=== PATIENT | male | born 1950 | race Caucasian/White ===

== ENCOUNTER 2017-11-04 12:42 | Inpatient (IN) | payer OTHER ==
[2017-11-04] VITALS (7 sets, daily range): BP systolic 115–174
[~2017-11-04] VITALS: Ht 177.8 cm; Wt 108.0 kg
[2017-11-04] MEDS ORDERED: NACL 0.9% 1,000 ML IV ONE (12:49)
[2017-11-04] MEDS ORDERED: KETOROLAC TROMETHAMINE 30 MG VIAL IVP ONE (13:00)
[2017-11-04 13:20] LABS: HEMATOCRIT 41.1 % (36-54); HEMOGLOBIN 13.7 g/dL (14.0-18.0); MEAN CORPUSCULAR HEMOGLOBIN 33 pg (27-31); MEAN CORPUSCULAR HGB CONC 33 % (32-36); MEAN CORPUSCULAR VOLUME 101 fL (79.0-98.0); PLATELET COUNT (AUTO) 166 K/uL (130-430); RED BLOOD CELL COUNT(AUTO) 4.09 MIL/uL (4.2-6.2); RED CELL DISTRIBUTION WIDTH 15.2 % (9.0-15.0)
[2017-11-04 13:35] LABS: CALCIUM 8.2 mg/dL (8.4-11.0); CREATININE 1.05 mg/dL (0.55-1.30); POTASSIUM 3.3 mmol/L (3.5-5.1)
[2017-11-04 13:43] LABS: TOTAL BILIRUBIN 0.6 mg/dL (0.0-1.0)
[2017-11-04 13:46] LABS: BASOPHILS % (MANUAL) 0 % (0-2); EOSINOPHILS % (MANUAL) 2 % (0-7); LYMPHOCYTES % (MANUAL) 40 % (20-46); MONOCYTES % (MANUAL) 12 % (0-11)
[2017-11-04 13:51] LABS: PROTHROMBIN TIME 10.2 SECS (9.5-12.5)
[2017-11-04] MEDS ORDERED: AMI200 PO (13:54)
[2017-11-04] MEDS ORDERED: METO50TA7 PO (13:54)
[2017-11-04] MEDS ORDERED: LOSA25TA3 PO (13:54)
[2017-11-04] MEDS ORDERED: ACET325T53 PO (13:54)
[2017-11-04] MEDS ORDERED: LIP40 PO (13:54)
[2017-11-04] MEDS ORDERED: MULT-1117 (13:54)
[2017-11-04] MEDS ORDERED: MAGN400O4 PO (13:54)
[2017-11-04] MEDS ORDERED: ASCO-339 PO (13:54)
[2017-11-04] MEDS ORDERED: AMIN30LI33 PO (13:54)
[2017-11-04] MEDS ORDERED: DULR10 RC (13:54)
[2017-11-04] MEDS ORDERED: VITD2000 PO (13:54)
[2017-11-04] MEDS ORDERED: FERR-57 PO (13:54)
[2017-11-04] MEDS ORDERED: SENN-153 PO (13:54)
[2017-11-04] MEDS ORDERED: DOCU-144 PO (13:54)
[2017-11-04] MEDS ORDERED: HYDR-4100 PO (13:54)
[2017-11-04] MEDS ORDERED: BUME1TAB4 PO (13:54)
[2017-11-04] MEDS ORDERED: DICL50TA9 PO (13:54)
[2017-11-04] MEDS ORDERED: OXYC10TA71 PO (13:54)
[2017-11-04] MEDS ORDERED: NA P133E41 RC (13:54)
[2017-11-04] MEDS ORDERED: MAGN400T10 PO (13:54)
[2017-11-04] MEDS ORDERED: APIX5TAB PO (13:54)
[2017-11-04] MEDS ORDERED: FOLIC ACID 1 MG, THIAMINE HCL 100 MG, MAGNESIUM SULFATE 1 GM, MVI 10 ML in NACL 0.9% 1,... IV ONE (15:00)
[2017-11-04] MEDS ORDERED: FOLIC ACID 5 MG/ML VIAL IV ONE (15:09)
[2017-11-04] MEDS ORDERED: THIAMINE HCL 100 MG/ML VIAL ONE (15:09)
[2017-11-04] MEDS ORDERED: MAGNESIUM SULFATE 1 GM/2 ML VIAL ONE (15:09)
[2017-11-04] MEDS ORDERED: MVI 10 ML VIAL IV ONE (15:09)
[2017-11-04 15:17] LABS: BILIRUBIN,URINE NEGATIVE (NEGATIVE); BLOOD, URINE NEGATIVE (NEGATIVE); CLARITY/URINE CLEAR (CLEAR); COLOR,URINE YELLOW (YELLOW); GLUCOSE,URINE NEGATIVE (NEGATIVE); KETONES,URINE NEGATIVE (NEGATIVE); LEUKOCYTE ESTERASE ,URINE NEGATIVE (NEGATIVE); NITRITE, URINE NEGATIVE (NEGATIVE); PH,URINE 7.5 (5.0-8.0); PROTEIN URINE NEGATIVE (NEGATIVE); UROBILINOGEN,URINE 0.2 (0.2-1.0)
[2017-11-04 15:30] LABS: BARBITURATE, URINE NEGATIVE (NEG <=200); BENZODIAZEPINE, URINE NEGATIVE (NEG <=150); CANNABINOID, URINE NEGATIVE (NEG <=50); COCAINE, URINE NEGATIVE (NEG <=150); METHAMPHETAMINES SCREEN,URINE NEGATIVE (NEG <=500); OPIATE, URINE NEGATIVE (NEG <=100); PHENCYCLIDINE SCREEN,URINE NEGATIVE (NEG <=25); UR TRICYCLIC ANTIDEPRESSANTS NEGATIVE (NEG <=300); URINE AMPHETAMINE NEGATIVE (NEG <=500); URINE METHADONE NEGATIVE (NEG <=200); URINE OXYCODONE SCREEN NEGATIVE (NEG <=100); URINE PROPOXYPHENE SCREEN NEGATIVE (NEG <=300)
[2017-11-04] MEDS ORDERED: LORazepam 2 MG/ML VIAL (FOR ER USE) IVP ONE (15:45)
[2017-11-04] MEDS ORDERED: LORazepam 2 MG/ML VIAL (FOR ER USE) ONE (15:47)
[2017-11-04] MEDS ORDERED: ACETAMINOPHEN 325 MG TABLET PO SCH (18:45)
[2017-11-04] MEDS ORDERED: MILK OF MAGNESIA 30 ML UDC PO PRN (18:45)
[2017-11-04] MEDS ORDERED: METOPROLOL SUCCINATE 50 MG TAB.SR.24H (TOPROL XL) PO SCH (18:45)
[2017-11-04] MEDS ORDERED: cloNIDine HCL 0.1 MG TABLET PO PRN (19:00)
[2017-11-04] MEDS ORDERED: LORazepam 2 MG/ML VIAL ONE (19:42)
[2017-11-04] MEDS: LORazepam 2 MG/ML VIAL IVP PRN (19:43)
[2017-11-04] MEDS: chlordiazePOXIDE HCL 25 MG CAPSULE PO SCH ×2 (20:10→21:00)
[2017-11-04] MEDS: cloNIDine HCL 0.2 MG TABLET PO SCH ×2 (20:11→21:00)
[2017-11-04] MEDS: APIXABAN 2.5 MG TABLET PO SCH ×2 (20:11→21:00)
[2017-11-04] MEDS: AMIODARONE HCL 200 MG TABLET PO SCH (20:15)
[2017-11-04] MEDS: BUMETANIDE 1 MG TABLET PO SCH (20:15)
[2017-11-04] MEDS: SENNOSIDES 8.6 MG TABLET PO SCH (20:55)
[2017-11-04] MEDS: CHOLECALCIFEROL (VITAMIN D3) 2,000 UNIT TABLET PO SCH (20:55)
[2017-11-04] MEDS: oxyCODONE HCL 10 MG TAB.ER.12H PO SCH (20:56)
[2017-11-04] MEDS: DOCUSATE SODIUM 100 MG CAPSULE PO SCH (20:56)
[2017-11-04] MEDS: DICLOFENAC SODIUM 25 MG TABLET.DR PO SCH (22:17)
[2017-11-04] MEDS ORDERED: DICLOFENAC SODIUM 25 MG TABLET.DR ONE (22:19)
[2017-11-04] MEDS ORDERED: METOPROLOL TARTRATE 5 MG/5 ML VIAL IVP ONE (23:15)
[2017-11-04] MEDS: HYDROcodone/ACETAMIN 10-325 MG TAB PO SCH (23:27)
[2017-11-05] VITALS (23 sets, daily range): BP systolic 101–169
[2017-11-05] MEDS: LORazepam 2 MG/ML VIAL IVP PRN ×5 (00:46→20:12)
[2017-11-05] MEDS ORDERED: METOPROLOL TARTRATE 5 MG/5 ML VIAL IVP ONE (03:45)
[2017-11-05] MEDS: HYDROcodone/ACETAMIN 10-325 MG TAB PO SCH ×2 (06:08→23:22)
[2017-11-05 06:20] LABS: BASOPHILS % (AUTO) 0.3 % (0.0-2.0); EOSINOPHILS # (AUTO) 0.1 K/uL (0.0-0.4); EOSINOPHILS % (AUTO) 2.4 % (0.0-4.0); HEMATOCRIT 35.5 % (36-54); HEMOGLOBIN 12.4 g/dL (14.0-18.0); LYMPHOCYTES # (AUTO) 0.8 K/uL (1.0-5.5); LYMPHOCYTES % (AUTO) 21.1 % (20.5-51.5); MEAN CORPUSCULAR HEMOGLOBIN 35 pg (27-31); MEAN CORPUSCULAR HGB CONC 35 % (32-36); MEAN CORPUSCULAR VOLUME 101 fL (79.0-98.0); MONOCYTES # (AUTO) 0.6 K/uL (0.0-1.0); MONOCYTES % (AUTO) 15.6 % (1.7-9.3); NEUTROPHILS # (AUTO) 2.4 K/uL (1.8-7.7); PLATELET COUNT (AUTO) 108 K/uL (130-430); RED BLOOD CELL COUNT(AUTO) 3.51 MIL/uL (4.2-6.2); RED CELL DISTRIBUTION WIDTH 15.2 % (9.0-15.0); WHITE BLOOD COUNT (AUTO) 3.9 K/uL (4.8-10.8)
[2017-11-05 06:36] LABS: CALCIUM 7.6 mg/dL (8.4-11.0); CREATININE 1.12 mg/dL (0.55-1.30); POTASSIUM 4.3 mmol/L (3.5-5.1)
[2017-11-05 06:39] LABS: NEUTROPHILS % (AUTO) 60.6 % (40.0-70.0)
[2017-11-05] MEDS: ATORVASTATIN 20 MG TABLET PO SCH (08:32)
[2017-11-05] MEDS: chlordiazePOXIDE HCL 25 MG CAPSULE PO SCH ×3 (08:32→20:43)
[2017-11-05] MEDS: MILK OF MAGNESIA 30 ML UDC PO SCH (08:32)
[2017-11-05] MEDS: LOSARTAN POTASSIUM 25 MG TABLET PO SCH (08:33)
[2017-11-05] MEDS: FERROUS SULFATE 325 MG TABLET.DR PO SCH (08:34)
[2017-11-05] MEDS: DOCUSATE SODIUM 100 MG CAPSULE PO SCH ×2 (08:34→20:44)
[2017-11-05] MEDS: AMIODARONE HCL 200 MG TABLET PO SCH ×2 (08:34→20:43)
[2017-11-05] MEDS: APIXABAN 2.5 MG TABLET PO SCH ×2 (08:35→20:43)
[2017-11-05] MEDS: cloNIDine HCL 0.2 MG TABLET PO SCH ×2 (08:36→20:44)
[2017-11-05] MEDS: BUMETANIDE 1 MG TABLET PO SCH (08:54)
[2017-11-05] MEDS: BISACODYL 10 MG/SUPPOSITORY RC SCH (09:00)
[2017-11-05] MEDS: MAGNESIUM OXIDE 400 MG TABLET PO SCH (09:00)
[2017-11-05] MEDS: NA PHOS,M-B/NA PHOS,DI-BA 118 ML (FLEET ENEMA) RC SCH (09:00)
[2017-11-05] MEDS ORDERED: DIGOXIN 0.5 MG/2 ML AMP IVP ONE (10:00)
[2017-11-05] MEDS ORDERED: DIGOXIN 0.5 MG/2 ML AMP ONE (10:08)
[2017-11-05] MEDS ORDERED: THIAMINE HCL 100 MG TABLET PO ONE (11:15)
[2017-11-05] MEDS: D5/0.45 NS 1,000 ML IV SCH (13:20)
[2017-11-05] MEDS: MULTIVITAMINS TAB 1 TABLET PO SCH (13:43)
[2017-11-05] MEDS: oxyCODONE HCL 10 MG TAB.ER.12H PO SCH ×2 (13:49→20:43)
[2017-11-05] MEDS: DICLOFENAC SODIUM 25 MG TABLET.DR PO SCH ×2 (13:52→20:51)
[2017-11-05] MEDS: ASCORBIC ACID 500 MG TABLET PO SCH (13:54)
[2017-11-05] MEDS: CHOLECALCIFEROL (VITAMIN D3) 2,000 UNIT TABLET PO SCH (20:42)
[2017-11-05] MEDS: SENNOSIDES 8.6 MG TABLET PO SCH (20:44)
[2017-11-05] MEDS: METOPROLOL SUCCINATE 50 MG TAB.SR.24H (TOPROL XL) PO SCH (20:44)
[2017-11-06] VITALS (21 sets, daily range): BP systolic 82–132
[2017-11-06] MEDS: LORazepam 2 MG/ML VIAL IVP PRN ×3 (01:47→10:40)
[2017-11-06] MEDS: D5/0.45 NS 1,000 ML IV SCH ×2 (01:57→14:37)
[2017-11-06] MEDS: HYDROcodone/ACETAMIN 10-325 MG TAB PO SCH ×2 (06:31→14:37)
[2017-11-06 06:47] LABS: BASOPHILS % (AUTO) 0.3 % (0.0-2.0); EOSINOPHILS # (AUTO) 0.1 K/uL (0.0-0.4); EOSINOPHILS % (AUTO) 3.2 % (0.0-4.0); HEMATOCRIT 33.8 % (36-54); HEMOGLOBIN 11.3 g/dL (14.0-18.0); LYMPHOCYTES # (AUTO) 0.7 K/uL (1.0-5.5); LYMPHOCYTES % (AUTO) 22.2 % (20.5-51.5); MEAN CORPUSCULAR HEMOGLOBIN 34 pg (27-31); MEAN CORPUSCULAR HGB CONC 33 % (32-36); MEAN CORPUSCULAR VOLUME 102 fL (79.0-98.0); MONOCYTES # (AUTO) 0.3 K/uL (0.0-1.0); MONOCYTES % (AUTO) 9.4 % (1.7-9.3); NEUTROPHILS # (AUTO) 1.8 K/uL (1.8-7.7); NEUTROPHILS % (AUTO) 64.9 % (40.0-70.0); RED BLOOD CELL COUNT(AUTO) 3.31 MIL/uL (4.2-6.2); RED CELL DISTRIBUTION WIDTH 15.5 % (9.0-15.0); WHITE BLOOD COUNT (AUTO) 2.9 K/uL (4.8-10.8)
[2017-11-06 07:11] LABS: INR 1.1 (0.80-1.20)
[2017-11-06 07:38] LABS: ALBUMIN 2.5 g/dL (3.4-4.8); CREATININE 1.15 mg/dL (0.55-1.30); POTASSIUM 3.8 mmol/L (3.5-5.1); TOTAL BILIRUBIN 1.3 mg/dL (0.0-1.0)
[2017-11-06] MEDS: THIAMINE HCL 100 MG TABLET PO SCH (08:15)
[2017-11-06] MEDS: chlordiazePOXIDE HCL 25 MG CAPSULE PO SCH ×3 (08:15→20:35)
[2017-11-06] MEDS: ATORVASTATIN 20 MG TABLET PO SCH (08:15)
[2017-11-06] MEDS: ASCORBIC ACID 500 MG TABLET PO SCH (08:15)
[2017-11-06] MEDS: oxyCODONE HCL 10 MG TAB.ER.12H PO SCH ×2 (08:16→20:35)
[2017-11-06] MEDS: MULTIVITAMINS TAB 1 TABLET PO SCH (08:16)
[2017-11-06] MEDS: APIXABAN 2.5 MG TABLET PO SCH ×2 (08:16→20:35)
[2017-11-06] MEDS: FERROUS SULFATE 325 MG TABLET.DR PO SCH (08:16)
[2017-11-06] MEDS: cloNIDine HCL 0.2 MG TABLET PO SCH ×2 (08:16→20:35)
[2017-11-06] MEDS: METOPROLOL SUCCINATE 50 MG TAB.SR.24H (TOPROL XL) PO SCH ×2 (08:17→20:36)
[2017-11-06] MEDS: LOSARTAN POTASSIUM 25 MG TABLET PO SCH (08:17)
[2017-11-06] MEDS: MILK OF MAGNESIA 30 ML UDC PO SCH (08:17)
[2017-11-06] MEDS: DOCUSATE SODIUM 100 MG CAPSULE PO SCH ×2 (08:17→20:35)
[2017-11-06] MEDS: DICLOFENAC SODIUM 25 MG TABLET.DR PO SCH ×2 (08:22→20:35)
[2017-11-06] MEDS: BUMETANIDE 1 MG TABLET PO SCH (08:23)
[2017-11-06] MEDS: AMIODARONE HCL 200 MG TABLET PO SCH ×2 (08:30→20:34)
[2017-11-06] MEDS: MAGNESIUM OXIDE 400 MG TABLET PO SCH (08:31)
[2017-11-06] MEDS: BISACODYL 10 MG/SUPPOSITORY RC SCH (09:00)
[2017-11-06] MEDS: NA PHOS,M-B/NA PHOS,DI-BA 118 ML (FLEET ENEMA) RC SCH (09:00)
[2017-11-06 09:51] LABS: PLATELET COUNT (AUTO) 79 K/uL (130-430)
[2017-11-06] MEDS: CHOLECALCIFEROL (VITAMIN D3) 2,000 UNIT TABLET PO SCH (20:34)
[2017-11-06] MEDS: SENNOSIDES 8.6 MG TABLET PO SCH (20:35)
[2017-11-07] MEDS: HYDROcodone/ACETAMIN 10-325 MG TAB PO SCH ×3 (02:48→18:27)
[2017-11-07] MEDS: D5/0.45 NS 1,000 ML IV SCH ×2 (02:52→18:22)
[2017-11-07 08:00] VITALS: BP_SYST 109
[2017-11-07 08:14] LABS: BASOPHILS % (AUTO) 0.5 % (0.0-2.0); EOSINOPHILS # (AUTO) 0.1 K/uL (0.0-0.4); EOSINOPHILS % (AUTO) 2.5 % (0.0-4.0); HEMOGLOBIN 11.5 g/dL (14.0-18.0); LYMPHOCYTES # (AUTO) 0.7 K/uL (1.0-5.5); LYMPHOCYTES % (AUTO) 15.5 % (20.5-51.5); MEAN CORPUSCULAR HEMOGLOBIN 36 pg (27-31); MEAN CORPUSCULAR HGB CONC 35 % (32-36); MEAN CORPUSCULAR VOLUME 103 fL (79.0-98.0); MONOCYTES # (AUTO) 0.4 K/uL (0.0-1.0); MONOCYTES % (AUTO) 9.3 % (1.7-9.3); NEUTROPHILS # (AUTO) 3.2 K/uL (1.8-7.7); NEUTROPHILS % (AUTO) 72.2 % (40.0-70.0); RED BLOOD CELL COUNT(AUTO) 3.22 MIL/uL (4.2-6.2); RED CELL DISTRIBUTION WIDTH 15.9 % (9.0-15.0); WHITE BLOOD COUNT (AUTO) 4.4 K/uL (4.8-10.8)
[2017-11-07 08:32] LABS: CALCIUM 8.6 mg/dL (8.4-11.0); CREATININE 1.49 mg/dL (0.55-1.30); POTASSIUM 4.3 mmol/L (3.5-5.1)
[2017-11-07 08:37] LABS: ALBUMIN 2.6 g/dL (3.4-4.8); TOTAL BILIRUBIN 0.8 mg/dL (0.0-1.0)
[2017-11-07 08:38] LABS: PLATELET COUNT (AUTO) 93 K/uL (130-430)
[2017-11-07] MEDS: BUMETANIDE 1 MG TABLET PO SCH (08:54)
[2017-11-07] MEDS: LOSARTAN POTASSIUM 25 MG TABLET PO SCH (08:55)
[2017-11-07] MEDS: chlordiazePOXIDE HCL 25 MG CAPSULE PO SCH ×3 (08:55→21:04)
[2017-11-07] MEDS: oxyCODONE HCL 10 MG TAB.ER.12H PO SCH ×2 (08:55→22:25)
[2017-11-07] MEDS: THIAMINE HCL 100 MG TABLET PO SCH (08:56)
[2017-11-07] MEDS: cloNIDine HCL 0.2 MG TABLET PO SCH ×2 (08:56→21:00)
[2017-11-07] MEDS: DICLOFENAC SODIUM 25 MG TABLET.DR PO SCH ×2 (08:56→22:24)
[2017-11-07] MEDS: ATORVASTATIN 20 MG TABLET PO SCH (08:56)
[2017-11-07] MEDS: ASCORBIC ACID 500 MG TABLET PO SCH (08:57)
[2017-11-07] MEDS: MAGNESIUM OXIDE 400 MG TABLET PO SCH (08:57)
[2017-11-07] MEDS: APIXABAN 2.5 MG TABLET PO SCH ×2 (08:57→22:26)
[2017-11-07] MEDS: AMIODARONE HCL 200 MG TABLET PO SCH ×2 (08:57→21:00)
[2017-11-07] MEDS: MULTIVITAMINS TAB 1 TABLET PO SCH (08:57)
[2017-11-07] MEDS: MILK OF MAGNESIA 30 ML UDC PO SCH (08:57)
[2017-11-07] MEDS: FERROUS SULFATE 325 MG TABLET.DR PO SCH (08:57)
[2017-11-07] MEDS: DOCUSATE SODIUM 100 MG CAPSULE PO SCH ×2 (08:58→21:00)
[2017-11-07] MEDS: BISACODYL 10 MG/SUPPOSITORY RC SCH (09:00)
[2017-11-07] MEDS: NA PHOS,M-B/NA PHOS,DI-BA 118 ML (FLEET ENEMA) RC SCH (09:00)
[2017-11-07] MEDS: METOPROLOL SUCCINATE 50 MG TAB.SR.24H (TOPROL XL) PO SCH ×2 (09:00→21:00)
[2017-11-07 12:10] VITALS: BP_SYST 106
[2017-11-07 16:05] VITALS: BP_SYST 102
[2017-11-07] MEDS ORDERED: THIAMINE HCL 100 MG TABLET PO ONE (19:00)
[2017-11-07 20:00] VITALS: BP_SYST 91
[2017-11-07] MEDS: SENNOSIDES 8.6 MG TABLET PO SCH (21:00)
[2017-11-07] MEDS ORDERED: NS 500 ML IV SCH (21:30)
[2017-11-07] MEDS: CHOLECALCIFEROL (VITAMIN D3) 2,000 UNIT TABLET PO SCH (22:25)
[2017-11-07 23:20] VITALS: BP_SYST 104
[2017-11-08 03:27] VITALS: BP_SYST 104
[2017-11-08] MEDS: HYDROcodone/ACETAMIN 10-325 MG TAB PO SCH ×2 (04:10→11:05)
[2017-11-08 04:12] VITALS: BP_SYST 103
[2017-11-08 06:25] LABS: BASOPHILS % (AUTO) 0.2 % (0.0-2.0); EOSINOPHILS # (AUTO) 0.1 K/uL (0.0-0.4); HEMOGLOBIN 11.8 g/dL (14.0-18.0); LYMPHOCYTES # (AUTO) 0.6 K/uL (1.0-5.5); LYMPHOCYTES % (AUTO) 13.8 % (20.5-51.5); MEAN CORPUSCULAR HEMOGLOBIN 35 pg (27-31); MEAN CORPUSCULAR HGB CONC 35 % (32-36); MEAN CORPUSCULAR VOLUME 102 fL (79.0-98.0); MONOCYTES # (AUTO) 0.5 K/uL (0.0-1.0); MONOCYTES % (AUTO) 11.2 % (1.7-9.3); NEUTROPHILS # (AUTO) 2.8 K/uL (1.8-7.7); NEUTROPHILS % (AUTO) 72.8 % (40.0-70.0); PLATELET COUNT (AUTO) 95 K/uL (130-430); RED BLOOD CELL COUNT(AUTO) 3.34 MIL/uL (4.2-6.2); RED CELL DISTRIBUTION WIDTH 16.4 % (9.0-15.0)
[2017-11-08 06:38] LABS: ALBUMIN 2.7 g/dL (3.4-4.8); CREATININE 1.59 mg/dL (0.55-1.30); POTASSIUM 4.4 mmol/L (3.5-5.1); TOTAL BILIRUBIN 0.6 mg/dL (0.0-1.0)
[2017-11-08 08:08] VITALS: BP_SYST 118
[2017-11-08] MEDS: DOCUSATE SODIUM 100 MG CAPSULE PO SCH ×2 (09:00→21:59)
[2017-11-08] MEDS: LOSARTAN POTASSIUM 25 MG TABLET PO SCH (09:00)
[2017-11-08] MEDS: cloNIDine HCL 0.2 MG TABLET PO SCH ×2 (09:00→21:00)
[2017-11-08] MEDS ORDERED: THIAMINE HCL 100 MG TABLET PO SCH (09:00)
[2017-11-08] MEDS: AMIODARONE HCL 200 MG TABLET PO SCH ×2 (09:00→21:00)
[2017-11-08] MEDS: BISACODYL 10 MG/SUPPOSITORY RC SCH (09:00)
[2017-11-08] MEDS: NA PHOS,M-B/NA PHOS,DI-BA 118 ML (FLEET ENEMA) RC SCH (09:00)
[2017-11-08] MEDS: MILK OF MAGNESIA 30 ML UDC PO SCH (09:00)
[2017-11-08] MEDS: D5/0.45 NS 1,000 ML IV SCH ×2 (09:09→18:41)
[2017-11-08] MEDS: THIAMINE HCL 100 MG TABLET PO SCH (09:09)
[2017-11-08] MEDS: DICLOFENAC SODIUM 25 MG TABLET.DR PO SCH ×2 (09:09→21:59)
[2017-11-08] MEDS: METOPROLOL SUCCINATE 50 MG TAB.SR.24H (TOPROL XL) PO SCH ×2 (09:10→21:00)
[2017-11-08] MEDS: MAGNESIUM OXIDE 400 MG TABLET PO SCH (09:10)
[2017-11-08] MEDS: oxyCODONE HCL 10 MG TAB.ER.12H PO SCH ×2 (09:11→22:01)
[2017-11-08] MEDS: ASCORBIC ACID 500 MG TABLET PO SCH (09:11)
[2017-11-08] MEDS: chlordiazePOXIDE HCL 25 MG CAPSULE PO SCH ×4 (09:11→21:59)
[2017-11-08] MEDS: APIXABAN 2.5 MG TABLET PO SCH ×2 (09:11→21:59)
[2017-11-08] MEDS: MULTIVITAMINS TAB 1 TABLET PO SCH (09:11)
[2017-11-08] MEDS: FERROUS SULFATE 325 MG TABLET.DR PO SCH (09:12)
[2017-11-08] MEDS: ATORVASTATIN 20 MG TABLET PO SCH (09:12)
[2017-11-08] MEDS: BUMETANIDE 1 MG TABLET PO SCH (09:13)
[2017-11-08 11:14] VITALS: BP_SYST 140
[2017-11-08] MEDS: HYDROcodone/ACETAMIN 10-325 MG TAB PO PRN ×2 (16:29→17:27)
[2017-11-08 16:30] VITALS: BP_SYST 131
[2017-11-08] MEDS: CHOLECALCIFEROL (VITAMIN D3) 2,000 UNIT TABLET PO SCH (21:59)
[2017-11-08] MEDS: SENNOSIDES 8.6 MG TABLET PO SCH (21:59)
[2017-11-08 22:00] VITALS: BP_SYST 93
[2017-11-09] VITALS (7 sets, daily range): BP systolic 98–135
[2017-11-09] MEDS: D5/0.45 NS 1,000 ML IV SCH (06:14)
[2017-11-09] MEDS: MILK OF MAGNESIA 30 ML UDC PO SCH (09:00)
[2017-11-09] MEDS: NA PHOS,M-B/NA PHOS,DI-BA 118 ML (FLEET ENEMA) RC SCH (09:00)
[2017-11-09] MEDS: BISACODYL 10 MG/SUPPOSITORY RC SCH (09:00)
[2017-11-09] MEDS: DOCUSATE SODIUM 100 MG CAPSULE PO SCH ×2 (09:00→21:18)
[2017-11-09] MEDS: THIAMINE HCL 100 MG TABLET PO SCH (09:27)
[2017-11-09] MEDS: chlordiazePOXIDE HCL 25 MG CAPSULE PO SCH ×4 (09:27→21:19)
[2017-11-09] MEDS: oxyCODONE HCL 10 MG TAB.ER.12H PO SCH ×2 (09:28→21:18)
[2017-11-09] MEDS: FERROUS SULFATE 325 MG TABLET.DR PO SCH (09:28)
[2017-11-09] MEDS: METOPROLOL SUCCINATE 50 MG TAB.SR.24H (TOPROL XL) PO SCH ×2 (09:28→21:18)
[2017-11-09] MEDS: ASCORBIC ACID 500 MG TABLET PO SCH (09:28)
[2017-11-09] MEDS: MAGNESIUM OXIDE 400 MG TABLET PO SCH (09:28)
[2017-11-09] MEDS: MULTIVITAMINS TAB 1 TABLET PO SCH (09:29)
[2017-11-09] MEDS: APIXABAN 2.5 MG TABLET PO SCH ×2 (09:29→21:20)
[2017-11-09] MEDS: ATORVASTATIN 20 MG TABLET PO SCH (09:29)
[2017-11-09] MEDS: cloNIDine HCL 0.2 MG TABLET PO SCH ×2 (09:30→21:18)
[2017-11-09] MEDS: BUMETANIDE 1 MG TABLET PO SCH (09:30)
[2017-11-09] MEDS: LOSARTAN POTASSIUM 25 MG TABLET PO SCH (09:31)
[2017-11-09] MEDS: AMIODARONE HCL 200 MG TABLET PO SCH ×2 (09:31→21:19)
[2017-11-09] MEDS: LORazepam 2 MG/ML VIAL IVP PRN ×2 (16:18→22:29)
[2017-11-09] MEDS: HYDROcodone/ACETAMIN 10-325 MG TAB PO PRN (17:26)
[2017-11-09] MEDS: SENNOSIDES 8.6 MG TABLET PO SCH (21:00)
[2017-11-09] MEDS: CHOLECALCIFEROL (VITAMIN D3) 2,000 UNIT TABLET PO SCH (21:18)
[2017-11-09] MEDS: ACETAMINOPHEN 325 MG TABLET PO PRN (22:29)
[2017-11-10] VITALS (7 sets, daily range): BP systolic 97–124
[2017-11-10 06:13] LABS: HEMATOCRIT 35.4 % (36-54); HEMOGLOBIN 12.2 g/dL (14.0-18.0); MEAN CORPUSCULAR HEMOGLOBIN 36 pg (27-31); MEAN CORPUSCULAR HGB CONC 34 % (32-36); MEAN CORPUSCULAR VOLUME 103 fL (79.0-98.0); PLATELET COUNT (AUTO) 111 K/uL (130-430); RED BLOOD CELL COUNT(AUTO) 3.43 MIL/uL (4.2-6.2); RED CELL DISTRIBUTION WIDTH 17.6 % (9.0-15.0); WHITE BLOOD COUNT (AUTO) 2.3 K/uL (4.8-10.8)
[2017-11-10 06:21] LABS: ALBUMIN 2.5 g/dL (3.4-4.8); CALCIUM 9.1 mg/dL (8.4-11.0); CREATININE 1.21 mg/dL (0.55-1.30); POTASSIUM 4.4 mmol/L (3.5-5.1); TOTAL BILIRUBIN 0.5 mg/dL (0.0-1.0)
[2017-11-10] MEDS: HYDROcodone/ACETAMIN 10-325 MG TAB PO PRN ×2 (06:45→13:06)
[2017-11-10] MEDS: LORazepam 2 MG/ML VIAL IVP PRN (08:05)
[2017-11-10 08:51] LABS: BAND % (MANUAL) 4 % (0-6); BASOPHILS % (MANUAL) 0 % (0-2); EOSINOPHILS % (MANUAL) 1 % (0-7); LYMPHOCYTES % (MANUAL) 24 % (20-46); MONOCYTES % (MANUAL) 18 % (0-11)
[2017-11-10 08:52] LABS: MYELOCYTES % 3 % (0-0)
[2017-11-10] MEDS: NA PHOS,M-B/NA PHOS,DI-BA 118 ML (FLEET ENEMA) RC SCH (09:43)
[2017-11-10] MEDS: MAGNESIUM OXIDE 400 MG TABLET PO SCH (09:43)
[2017-11-10] MEDS: BISACODYL 10 MG/SUPPOSITORY RC SCH (09:43)
[2017-11-10] MEDS: MILK OF MAGNESIA 30 ML UDC PO SCH (09:43)
[2017-11-10] MEDS: oxyCODONE HCL 10 MG TAB.ER.12H PO SCH ×2 (09:43→20:26)
[2017-11-10] MEDS: THIAMINE HCL 100 MG TABLET PO SCH (09:43)
[2017-11-10] MEDS: METOPROLOL SUCCINATE 50 MG TAB.SR.24H (TOPROL XL) PO SCH ×2 (09:44→20:25)
[2017-11-10] MEDS: ASCORBIC ACID 500 MG TABLET PO SCH (09:44)
[2017-11-10] MEDS: cloNIDine HCL 0.2 MG TABLET PO SCH ×2 (09:44→20:26)
[2017-11-10] MEDS: DOCUSATE SODIUM 100 MG CAPSULE PO SCH ×2 (09:45→20:25)
[2017-11-10] MEDS: AMIODARONE HCL 200 MG TABLET PO SCH ×2 (09:45→20:24)
[2017-11-10] MEDS: FERROUS SULFATE 325 MG TABLET.DR PO SCH (09:45)
[2017-11-10] MEDS: LOSARTAN POTASSIUM 25 MG TABLET PO SCH (09:45)
[2017-11-10] MEDS: APIXABAN 2.5 MG TABLET PO SCH ×2 (09:46→20:26)
[2017-11-10] MEDS: MULTIVITAMINS TAB 1 TABLET PO SCH (09:46)
[2017-11-10] MEDS: ATORVASTATIN 20 MG TABLET PO SCH (09:46)
[2017-11-10] MEDS: chlordiazePOXIDE HCL 25 MG CAPSULE PO SCH ×4 (09:46→20:26)
[2017-11-10] MEDS: BUMETANIDE 1 MG TABLET PO SCH (09:47)
[2017-11-10] MEDS: ACETAMINOPHEN 325 MG TABLET PO PRN (12:05)
[2017-11-10] MEDS: SENNOSIDES 8.6 MG TABLET PO SCH (20:25)
[2017-11-10] MEDS: CHOLECALCIFEROL (VITAMIN D3) 2,000 UNIT TABLET PO SCH (20:26)
[2017-11-11 06:20] LABS: BASOPHILS % (AUTO) 0.3 % (0.0-2.0); EOSINOPHILS # (AUTO) 0.1 K/uL (0.0-0.4); EOSINOPHILS % (AUTO) 1.5 % (0.0-4.0); HEMATOCRIT 36.9 % (36-54); HEMOGLOBIN 12.5 g/dL (14.0-18.0); LYMPHOCYTES # (AUTO) 0.6 K/uL (1.0-5.5); LYMPHOCYTES % (AUTO) 12.3 % (20.5-51.5); MEAN CORPUSCULAR HEMOGLOBIN 35 pg (27-31); MEAN CORPUSCULAR HGB CONC 34 % (32-36); MEAN CORPUSCULAR VOLUME 103 fL (79.0-98.0); MONOCYTES % (AUTO) 19.1 % (1.7-9.3); NEUTROPHILS # (AUTO) 3.3 K/uL (1.8-7.7); NEUTROPHILS % (AUTO) 66.8 % (40.0-70.0); PLATELET COUNT (AUTO) 154 K/uL (130-430); RED BLOOD CELL COUNT(AUTO) 3.57 MIL/uL (4.2-6.2); RED CELL DISTRIBUTION WIDTH 16.4 % (9.0-15.0)
[2017-11-11 06:37] LABS: ALBUMIN 2.7 g/dL (3.4-4.8); CALCIUM 9.3 mg/dL (8.4-11.0); CREATININE 1.27 mg/dL (0.55-1.30); POTASSIUM 4.5 mmol/L (3.5-5.1); TOTAL BILIRUBIN 0.5 mg/dL (0.0-1.0)
[2017-11-11 08:12] VITALS: BP_SYST 125
[2017-11-11] MEDS: METOPROLOL SUCCINATE 50 MG TAB.SR.24H (TOPROL XL) PO SCH ×2 (09:00→20:55)
[2017-11-11] MEDS: BUMETANIDE 1 MG TABLET PO SCH (09:00)
[2017-11-11] MEDS: LOSARTAN POTASSIUM 25 MG TABLET PO SCH (09:00)
[2017-11-11] MEDS: oxyCODONE HCL 10 MG TAB.ER.12H PO SCH ×2 (09:00→20:55)
[2017-11-11] MEDS: MULTIVITAMINS TAB 1 TABLET PO SCH (11:03)
[2017-11-11] MEDS: APIXABAN 2.5 MG TABLET PO SCH ×2 (11:04→20:56)
[2017-11-11] MEDS: MILK OF MAGNESIA 30 ML UDC PO SCH (11:04)
[2017-11-11] MEDS: DOCUSATE SODIUM 100 MG CAPSULE PO SCH ×2 (11:05→20:56)
[2017-11-11] MEDS: ATORVASTATIN 20 MG TABLET PO SCH (11:05)
[2017-11-11] MEDS: FERROUS SULFATE 325 MG TABLET.DR PO SCH (11:05)
[2017-11-11] MEDS: MAGNESIUM OXIDE 400 MG TABLET PO SCH (11:05)
[2017-11-11] MEDS: ASCORBIC ACID 500 MG TABLET PO SCH (11:05)
[2017-11-11] MEDS: THIAMINE HCL 100 MG TABLET PO SCH (11:06)
[2017-11-11] MEDS: BISACODYL 10 MG/SUPPOSITORY RC SCH (11:06)
[2017-11-11] MEDS: cloNIDine HCL 0.2 MG TABLET PO SCH ×2 (11:10→20:54)
[2017-11-11] MEDS: NA PHOS,M-B/NA PHOS,DI-BA 118 ML (FLEET ENEMA) RC SCH ×2 (11:31→12:41)
[2017-11-11 12:01] VITALS: BP_SYST 113
[2017-11-11] MEDS: AMIODARONE HCL 200 MG TABLET PO SCH ×2 (12:59→20:54)
[2017-11-11] MEDS: HYDROcodone/ACETAMIN 10-325 MG TAB PO PRN (16:07)
[2017-11-11 16:30] VITALS: BP_SYST 111
[2017-11-11 20:00] VITALS: BP_SYST 97
[2017-11-11] MEDS: chlordiazePOXIDE HCL 25 MG CAPSULE PO SCH (20:55)
[2017-11-11] MEDS: CHOLECALCIFEROL (VITAMIN D3) 2,000 UNIT TABLET PO SCH (20:56)
[2017-11-11] MEDS: SENNOSIDES 8.6 MG TABLET PO SCH (20:56)
[2017-11-12 00:32] VITALS: BP_SYST 111
[2017-11-12] MEDS: HYDROcodone/ACETAMIN 10-325 MG TAB PO PRN ×2 (00:42→13:26)
[2017-11-12] MEDS: ACETAMINOPHEN 325 MG TABLET PO PRN ×2 (04:45→18:36)
[2017-11-12 07:30] VITALS: BP_SYST 120
[2017-11-12 08:00] VITALS: BP_SYST 104
[2017-11-12] MEDS: chlordiazePOXIDE HCL 25 MG CAPSULE PO SCH ×2 (08:44→20:28)
[2017-11-12] MEDS: oxyCODONE HCL 10 MG TAB.ER.12H PO SCH ×2 (08:44→20:29)
[2017-11-12] MEDS: MULTIVITAMINS TAB 1 TABLET PO SCH (08:46)
[2017-11-12] MEDS: APIXABAN 2.5 MG TABLET PO SCH ×2 (08:46→20:30)
[2017-11-12] MEDS: AMIODARONE HCL 200 MG TABLET PO SCH ×2 (08:47→20:28)
[2017-11-12] MEDS: THIAMINE HCL 100 MG TABLET PO SCH (08:47)
[2017-11-12] MEDS: ASCORBIC ACID 500 MG TABLET PO SCH (08:47)
[2017-11-12] MEDS: MAGNESIUM OXIDE 400 MG TABLET PO SCH (08:49)
[2017-11-12] MEDS: METOPROLOL SUCCINATE 50 MG TAB.SR.24H (TOPROL XL) PO SCH ×2 (08:49→20:29)
[2017-11-12] MEDS: BUMETANIDE 1 MG TABLET PO SCH (08:51)
[2017-11-12] MEDS: FERROUS SULFATE 325 MG TABLET.DR PO SCH (08:53)
[2017-11-12] MEDS: LOSARTAN POTASSIUM 25 MG TABLET PO SCH (08:53)
[2017-11-12] MEDS: MILK OF MAGNESIA 30 ML UDC PO SCH (09:00)
[2017-11-12] MEDS: NA PHOS,M-B/NA PHOS,DI-BA 118 ML (FLEET ENEMA) RC SCH (09:00)
[2017-11-12 11:33] VITALS: BP_SYST 131
[2017-11-12] MEDS: DOCUSATE SODIUM 100 MG CAPSULE PO SCH ×2 (13:27→20:28)
[2017-11-12] MEDS: BISACODYL 10 MG/SUPPOSITORY RC SCH (13:27)
[2017-11-12] MEDS: cloNIDine HCL 0.2 MG TABLET PO SCH ×2 (13:27→20:29)
[2017-11-12] MEDS: ATORVASTATIN 20 MG TABLET PO SCH (13:34)
[2017-11-12 16:00] VITALS: BP_SYST 139
[2017-11-12 20:00] VITALS: BP_SYST 119
[2017-11-12] MEDS: CHOLECALCIFEROL (VITAMIN D3) 2,000 UNIT TABLET PO SCH (20:28)
[2017-11-12] MEDS: SENNOSIDES 8.6 MG TABLET PO SCH (20:28)
[2017-11-13 00:07] VITALS: BP_SYST 128
[2017-11-13] MEDS: LORazepam 2 MG/ML VIAL IVP PRN (00:14)
[2017-11-13] MEDS: HYDROcodone/ACETAMIN 10-325 MG TAB PO PRN ×2 (05:21→10:59)
[2017-11-13 08:06] VITALS: BP_SYST 113
[2017-11-13] MEDS: NA PHOS,M-B/NA PHOS,DI-BA 118 ML (FLEET ENEMA) RC SCH (09:00)
[2017-11-13] MEDS: BISACODYL 10 MG/SUPPOSITORY RC SCH ×2 (09:00→09:49)
[2017-11-13] MEDS: APIXABAN 2.5 MG TABLET PO SCH ×2 (09:45→20:40)
[2017-11-13] MEDS: ASCORBIC ACID 500 MG TABLET PO SCH (09:45)
[2017-11-13] MEDS: chlordiazePOXIDE HCL 25 MG CAPSULE PO SCH ×2 (09:45→20:40)
[2017-11-13] MEDS: MAGNESIUM OXIDE 400 MG TABLET PO SCH (09:45)
[2017-11-13] MEDS: MILK OF MAGNESIA 30 ML UDC PO SCH (09:45)
[2017-11-13] MEDS: AMIODARONE HCL 200 MG TABLET PO SCH ×2 (09:46→20:38)
[2017-11-13] MEDS: ATORVASTATIN 20 MG TABLET PO SCH (09:47)
[2017-11-13] MEDS: cloNIDine HCL 0.2 MG TABLET PO SCH ×2 (09:47→20:40)
[2017-11-13] MEDS: THIAMINE HCL 100 MG TABLET PO SCH (09:48)
[2017-11-13] MEDS: DOCUSATE SODIUM 100 MG CAPSULE PO SCH ×2 (09:48→20:40)
[2017-11-13] MEDS: METOPROLOL SUCCINATE 50 MG TAB.SR.24H (TOPROL XL) PO SCH ×2 (09:48→20:40)
[2017-11-13] MEDS: oxyCODONE HCL 10 MG TAB.ER.12H PO SCH ×2 (09:48→20:41)
[2017-11-13] MEDS: MULTIVITAMINS TAB 1 TABLET PO SCH (09:48)
[2017-11-13] MEDS: LOSARTAN POTASSIUM 25 MG TABLET PO SCH (09:49)
[2017-11-13] MEDS: FERROUS SULFATE 325 MG TABLET.DR PO SCH (09:49)
[2017-11-13] MEDS: BUMETANIDE 1 MG TABLET PO SCH (09:50)
[2017-11-13 11:31] VITALS: BP_SYST 127
[2017-11-13 15:17] VITALS: BP_SYST 95
[2017-11-13 20:00] VITALS: BP_SYST 85
[2017-11-13] MEDS: CHOLECALCIFEROL (VITAMIN D3) 2,000 UNIT TABLET PO SCH (20:38)
[2017-11-13] MEDS: SENNOSIDES 8.6 MG TABLET PO SCH (20:41)
[2017-11-14 00:10] VITALS: BP_SYST 101
[2017-11-14] MEDS: HYDROcodone/ACETAMIN 10-325 MG TAB PO PRN ×3 (02:02→14:56)
[2017-11-14] MEDS: ACETAMINOPHEN 325 MG TABLET PO PRN ×2 (06:07→19:44)
[2017-11-14 08:20] VITALS: BP_SYST 91
[2017-11-14] MEDS: BISACODYL 10 MG/SUPPOSITORY RC SCH (09:00)
[2017-11-14] MEDS: MILK OF MAGNESIA 30 ML UDC PO SCH (09:00)
[2017-11-14] MEDS: NA PHOS,M-B/NA PHOS,DI-BA 118 ML (FLEET ENEMA) RC SCH (09:00)
[2017-11-14] MEDS: cloNIDine HCL 0.2 MG TABLET PO SCH ×2 (09:00→22:21)
[2017-11-14] MEDS: METOPROLOL SUCCINATE 50 MG TAB.SR.24H (TOPROL XL) PO SCH ×2 (09:00→22:23)
[2017-11-14] MEDS: LOSARTAN POTASSIUM 25 MG TABLET PO SCH (09:00)
[2017-11-14] MEDS: AMIODARONE HCL 200 MG TABLET PO SCH ×2 (09:00→22:22)
[2017-11-14] MEDS: ASCORBIC ACID 500 MG TABLET PO SCH (09:14)
[2017-11-14] MEDS: APIXABAN 2.5 MG TABLET PO SCH ×2 (09:14→22:21)
[2017-11-14] MEDS: BUMETANIDE 1 MG TABLET PO SCH (09:15)
[2017-11-14] MEDS: chlordiazePOXIDE HCL 25 MG CAPSULE PO SCH ×2 (09:15→22:22)
[2017-11-14] MEDS: FERROUS SULFATE 325 MG TABLET.DR PO SCH (09:15)
[2017-11-14] MEDS: ATORVASTATIN 20 MG TABLET PO SCH (09:16)
[2017-11-14] MEDS: MULTIVITAMINS TAB 1 TABLET PO SCH (09:19)
[2017-11-14] MEDS: THIAMINE HCL 100 MG TABLET PO SCH (09:19)
[2017-11-14] MEDS: MAGNESIUM OXIDE 400 MG TABLET PO SCH (09:20)
[2017-11-14] MEDS: DOCUSATE SODIUM 100 MG CAPSULE PO SCH ×2 (09:21→21:00)
[2017-11-14 12:37] VITALS: BP_SYST 115
[2017-11-14 16:03] VITALS: BP_SYST 135
[2017-11-14 19:50] VITALS: BP_SYST 113
[2017-11-14] MEDS: SENNOSIDES 8.6 MG TABLET PO SCH (21:00)
[2017-11-14] MEDS: CHOLECALCIFEROL (VITAMIN D3) 2,000 UNIT TABLET PO SCH (22:22)
[2017-11-15] VITALS: BP_SYST 117
[2017-11-15] MEDS: HYDROcodone/ACETAMIN 10-325 MG TAB PO PRN ×4 (02:46→20:44)
[2017-11-15] MEDS: ACETAMINOPHEN 325 MG TABLET PO PRN ×2 (05:46→11:45)
[2017-11-15 05:49] VITALS: BP_SYST 120
[2017-11-15 06:36] LABS: CALCIUM 9.4 mg/dL (8.4-11.0); CREATININE 1.35 mg/dL (0.55-1.30); POTASSIUM 4.4 mmol/L (3.5-5.1)
[2017-11-15 08:00] VITALS: BP_SYST 115
[2017-11-15] MEDS: chlordiazePOXIDE HCL 25 MG CAPSULE PO SCH ×2 (08:43→21:50)
[2017-11-15] MEDS: FERROUS SULFATE 325 MG TABLET.DR PO SCH (08:43)
[2017-11-15] MEDS: LOSARTAN POTASSIUM 25 MG TABLET PO SCH (08:43)
[2017-11-15] MEDS: DOCUSATE SODIUM 100 MG CAPSULE PO SCH ×2 (08:43→21:50)
[2017-11-15] MEDS: cloNIDine HCL 0.2 MG TABLET PO SCH ×2 (08:44→21:50)
[2017-11-15] MEDS: APIXABAN 2.5 MG TABLET PO SCH ×2 (08:44→21:52)
[2017-11-15] MEDS: METOPROLOL SUCCINATE 50 MG TAB.SR.24H (TOPROL XL) PO SCH ×2 (08:45→21:49)
[2017-11-15] MEDS: AMIODARONE HCL 200 MG TABLET PO SCH ×2 (08:45→21:49)
[2017-11-15] MEDS: MAGNESIUM OXIDE 400 MG TABLET PO SCH (08:45)
[2017-11-15] MEDS: MULTIVITAMINS TAB 1 TABLET PO SCH (08:46)
[2017-11-15] MEDS: THIAMINE HCL 100 MG TABLET PO SCH (08:46)
[2017-11-15] MEDS: ASCORBIC ACID 500 MG TABLET PO SCH (08:46)
[2017-11-15] MEDS: MILK OF MAGNESIA 30 ML UDC PO SCH (08:47)
[2017-11-15] MEDS: BISACODYL 10 MG/SUPPOSITORY RC SCH (08:48)
[2017-11-15] MEDS: NA PHOS,M-B/NA PHOS,DI-BA 118 ML (FLEET ENEMA) RC SCH (08:48)
[2017-11-15] MEDS: ATORVASTATIN 20 MG TABLET PO SCH (09:08)
[2017-11-15] MEDS: BUMETANIDE 1 MG TABLET PO SCH (09:10)
[2017-11-15 18:30] VITALS: BP_SYST 135
[2017-11-15] MEDS: HALOPERIDOL 1 MG TABLET (HALDOL) PO SCH (20:44)
[2017-11-15 21:19] VITALS: BP_SYST 119
[2017-11-15] MEDS: CHOLECALCIFEROL (VITAMIN D3) 2,000 UNIT TABLET PO SCH (21:50)
[2017-11-15] MEDS: SENNOSIDES 8.6 MG TABLET PO SCH (21:50)
[2017-11-16 00:14] VITALS: BP_SYST 101
[2017-11-16] MEDS: HYDROcodone/ACETAMIN 10-325 MG TAB PO PRN ×2 (03:02→10:37)
[2017-11-16 06:22] LABS: BASOPHILS % (AUTO) 0.5 % (0.0-2.0); EOSINOPHILS # (AUTO) 0.2 K/uL (0.0-0.4); EOSINOPHILS % (AUTO) 3.6 % (0.0-4.0); HEMATOCRIT 35.7 % (36-54); HEMOGLOBIN 11.9 g/dL (14.0-18.0); LYMPHOCYTES # (AUTO) 1.2 K/uL (1.0-5.5); LYMPHOCYTES % (AUTO) 24.7 % (20.5-51.5); MEAN CORPUSCULAR HEMOGLOBIN 35 pg (27-31); MEAN CORPUSCULAR HGB CONC 33 % (32-36); MEAN CORPUSCULAR VOLUME 103 fL (79.0-98.0); MONOCYTES % (AUTO) 19.4 % (1.7-9.3); NEUTROPHILS # (AUTO) 2.6 K/uL (1.8-7.7); NEUTROPHILS % (AUTO) 51.8 % (40.0-70.0); PLATELET COUNT (AUTO) 277 K/uL (130-430); RED BLOOD CELL COUNT(AUTO) 3.46 MIL/uL (4.2-6.2)
[2017-11-16] MEDS: ACETAMINOPHEN 325 MG TABLET PO PRN (06:34)
[2017-11-16 06:47] LABS: CALCIUM 9.6 mg/dL (8.4-11.0); CREATININE 1.21 mg/dL (0.55-1.30); POTASSIUM 4.7 mmol/L (3.5-5.1)
[2017-11-16 07:28] VITALS: BP_SYST 121
[2017-11-16] MEDS: FERROUS SULFATE 325 MG TABLET.DR PO SCH (08:10)
[2017-11-16] MEDS: MILK OF MAGNESIA 30 ML UDC PO SCH (08:10)
[2017-11-16] MEDS: DOCUSATE SODIUM 100 MG CAPSULE PO SCH ×2 (08:10→21:28)
[2017-11-16] MEDS: cloNIDine HCL 0.2 MG TABLET PO SCH ×2 (08:10→21:28)
[2017-11-16] MEDS: MULTIVITAMINS TAB 1 TABLET PO SCH (08:10)
[2017-11-16] MEDS: THIAMINE HCL 100 MG TABLET PO SCH (08:10)
[2017-11-16] MEDS: AMIODARONE HCL 200 MG TABLET PO SCH ×2 (08:11→21:27)
[2017-11-16] MEDS: chlordiazePOXIDE HCL 25 MG CAPSULE PO SCH ×2 (08:11→21:27)
[2017-11-16] MEDS: LOSARTAN POTASSIUM 25 MG TABLET PO SCH (08:11)
[2017-11-16] MEDS: HALOPERIDOL 1 MG TABLET (HALDOL) PO SCH ×3 (08:12→21:24)
[2017-11-16] MEDS: ATORVASTATIN 20 MG TABLET PO SCH (08:12)
[2017-11-16] MEDS: APIXABAN 2.5 MG TABLET PO SCH ×2 (08:12→21:26)
[2017-11-16] MEDS: MAGNESIUM OXIDE 400 MG TABLET PO SCH (08:13)
[2017-11-16] MEDS: METOPROLOL SUCCINATE 50 MG TAB.SR.24H (TOPROL XL) PO SCH ×2 (08:13→21:25)
[2017-11-16] MEDS: ASCORBIC ACID 500 MG TABLET PO SCH (08:13)
[2017-11-16] MEDS: BUMETANIDE 1 MG TABLET PO SCH (08:17)
[2017-11-16] MEDS: BISACODYL 10 MG/SUPPOSITORY RC SCH (08:18)
[2017-11-16] MEDS: NA PHOS,M-B/NA PHOS,DI-BA 118 ML (FLEET ENEMA) RC SCH (08:18)
[2017-11-16 13:00] VITALS: BP_SYST 97
[2017-11-16 16:05] VITALS: BP_SYST 114
[2017-11-16 20:15] VITALS: BP_SYST 119
[2017-11-16] MEDS: SENNOSIDES 8.6 MG TABLET PO SCH (21:27)
[2017-11-16] MEDS: CHOLECALCIFEROL (VITAMIN D3) 2,000 UNIT TABLET PO SCH (21:28)
[2017-11-16 23:09] VITALS: BP_SYST 112
[2017-11-17] MEDS: HYDROcodone/ACETAMIN 10-325 MG TAB PO PRN ×4 (01:23→20:41)
[2017-11-17] MEDS: APIXABAN 2.5 MG TABLET PO SCH ×2 (08:06→20:38)
[2017-11-17] MEDS: AMIODARONE HCL 200 MG TABLET PO SCH ×2 (08:07→20:40)
[2017-11-17] MEDS: FERROUS SULFATE 325 MG TABLET.DR PO SCH (08:07)
[2017-11-17] MEDS: cloNIDine HCL 0.2 MG TABLET PO SCH ×2 (08:08→20:36)
[2017-11-17] MEDS: MULTIVITAMINS TAB 1 TABLET PO SCH (08:08)
[2017-11-17] MEDS: THIAMINE HCL 100 MG TABLET PO SCH (08:08)
[2017-11-17] MEDS: ATORVASTATIN 20 MG TABLET PO SCH (08:08)
[2017-11-17] MEDS: chlordiazePOXIDE HCL 25 MG CAPSULE PO SCH ×2 (08:09→20:39)
[2017-11-17] MEDS: LOSARTAN POTASSIUM 25 MG TABLET PO SCH (08:09)
[2017-11-17] MEDS: METOPROLOL SUCCINATE 50 MG TAB.SR.24H (TOPROL XL) PO SCH ×2 (08:09→20:37)
[2017-11-17] MEDS: MAGNESIUM OXIDE 400 MG TABLET PO SCH (08:09)
[2017-11-17] MEDS: HALOPERIDOL 1 MG TABLET (HALDOL) PO SCH ×3 (08:10→20:43)
[2017-11-17] MEDS: NA PHOS,M-B/NA PHOS,DI-BA 118 ML (FLEET ENEMA) RC SCH (08:10)
[2017-11-17] MEDS: ASCORBIC ACID 500 MG TABLET PO SCH (08:10)
[2017-11-17] MEDS: MILK OF MAGNESIA 30 ML UDC PO SCH (08:10)
[2017-11-17] MEDS: BISACODYL 10 MG/SUPPOSITORY RC SCH (08:10)
[2017-11-17] MEDS: DOCUSATE SODIUM 100 MG CAPSULE PO SCH ×2 (08:11→20:46)
[2017-11-17] MEDS: BUMETANIDE 1 MG TABLET PO SCH (08:16)
[2017-11-17 08:40] VITALS: BP_SYST 122
[2017-11-17 12:00] VITALS: BP_SYST 129
[2017-11-17 16:10] VITALS: BP_SYST 123
[2017-11-17 20:00] VITALS: BP_SYST 100
[2017-11-17] MEDS: SENNOSIDES 8.6 MG TABLET PO SCH (20:37)
[2017-11-17] MEDS: CHOLECALCIFEROL (VITAMIN D3) 2,000 UNIT TABLET PO SCH (20:43)
[2017-11-17 23:23] VITALS: BP_SYST 117
[2017-11-17 23:27] VITALS: BP_SYST 117
[2017-11-18] MEDS: HYDROcodone/ACETAMIN 10-325 MG TAB PO PRN ×3 (06:19→20:19)
[2017-11-18 08:13] VITALS: BP_SYST 126
[2017-11-18] MEDS: APIXABAN 2.5 MG TABLET PO SCH ×2 (08:33→20:20)
[2017-11-18] MEDS: BUMETANIDE 1 MG TABLET PO SCH (08:33)
[2017-11-18] MEDS: MULTIVITAMINS TAB 1 TABLET PO SCH (08:33)
[2017-11-18] MEDS: METOPROLOL SUCCINATE 50 MG TAB.SR.24H (TOPROL XL) PO SCH ×2 (08:33→20:18)
[2017-11-18] MEDS: THIAMINE HCL 100 MG TABLET PO SCH (08:34)
[2017-11-18] MEDS: ATORVASTATIN 20 MG TABLET PO SCH (08:34)
[2017-11-18] MEDS: chlordiazePOXIDE HCL 25 MG CAPSULE PO SCH ×2 (08:34→20:18)
[2017-11-18] MEDS: MAGNESIUM OXIDE 400 MG TABLET PO SCH (08:34)
[2017-11-18] MEDS: HALOPERIDOL 1 MG TABLET (HALDOL) PO SCH ×3 (08:34→20:20)
[2017-11-18] MEDS: AMIODARONE HCL 200 MG TABLET PO SCH ×2 (08:35→20:20)
[2017-11-18] MEDS: cloNIDine HCL 0.2 MG TABLET PO SCH ×2 (08:35→20:20)
[2017-11-18] MEDS: FERROUS SULFATE 325 MG TABLET.DR PO SCH (08:35)
[2017-11-18] MEDS: DOCUSATE SODIUM 100 MG CAPSULE PO SCH ×2 (08:36→20:21)
[2017-11-18] MEDS: LOSARTAN POTASSIUM 25 MG TABLET PO SCH (08:36)
[2017-11-18] MEDS: NA PHOS,M-B/NA PHOS,DI-BA 118 ML (FLEET ENEMA) RC SCH (08:37)
[2017-11-18] MEDS: ASCORBIC ACID 500 MG TABLET PO SCH (08:37)
[2017-11-18] MEDS: BISACODYL 10 MG/SUPPOSITORY RC SCH (08:37)
[2017-11-18] MEDS: MILK OF MAGNESIA 30 ML UDC PO SCH (08:37)
[2017-11-18 11:48] VITALS: BP_SYST 121
[2017-11-18 16:04] VITALS: BP_SYST 124
[2017-11-18] MEDS: CHOLECALCIFEROL (VITAMIN D3) 2,000 UNIT TABLET PO SCH (20:20)
[2017-11-18] MEDS: SENNOSIDES 8.6 MG TABLET PO SCH (20:21)
[2017-11-18 23:45] VITALS: BP_SYST 100
[2017-11-19] MEDS: HYDROcodone/ACETAMIN 10-325 MG TAB PO PRN ×4 (03:56→18:43)
[2017-11-19 08:01] VITALS: BP_SYST 106
[2017-11-19] MEDS: MILK OF MAGNESIA 30 ML UDC PO SCH (09:00)
[2017-11-19] MEDS: BISACODYL 10 MG/SUPPOSITORY RC SCH (09:00)
[2017-11-19] MEDS: cloNIDine HCL 0.2 MG TABLET PO SCH ×2 (09:00→20:29)
[2017-11-19] MEDS: NA PHOS,M-B/NA PHOS,DI-BA 118 ML (FLEET ENEMA) RC SCH (09:00)
[2017-11-19] MEDS: FERROUS SULFATE 325 MG TABLET.DR PO SCH (10:07)
[2017-11-19] MEDS: ATORVASTATIN 20 MG TABLET PO SCH (10:07)
[2017-11-19] MEDS: METOPROLOL SUCCINATE 50 MG TAB.SR.24H (TOPROL XL) PO SCH ×2 (10:08→20:28)
[2017-11-19] MEDS: APIXABAN 2.5 MG TABLET PO SCH ×2 (10:08→20:27)
[2017-11-19] MEDS: DOCUSATE SODIUM 100 MG CAPSULE PO SCH ×2 (10:09→20:27)
[2017-11-19] MEDS: ASCORBIC ACID 500 MG TABLET PO SCH (10:09)
[2017-11-19] MEDS: HALOPERIDOL 1 MG TABLET (HALDOL) PO SCH ×3 (10:09→20:27)
[2017-11-19] MEDS: MAGNESIUM OXIDE 400 MG TABLET PO SCH (10:09)
[2017-11-19] MEDS: THIAMINE HCL 100 MG TABLET PO SCH (10:09)
[2017-11-19] MEDS: MULTIVITAMINS TAB 1 TABLET PO SCH (10:09)
[2017-11-19] MEDS: AMIODARONE HCL 200 MG TABLET PO SCH ×2 (10:10→20:26)
[2017-11-19] MEDS: LOSARTAN POTASSIUM 25 MG TABLET PO SCH (10:10)
[2017-11-19] MEDS: chlordiazePOXIDE HCL 25 MG CAPSULE PO SCH ×2 (10:11→20:28)
[2017-11-19] MEDS: BUMETANIDE 1 MG TABLET PO SCH (10:11)
[2017-11-19 12:06] VITALS: BP_SYST 113
[2017-11-19 16:11] VITALS: BP_SYST 119
[2017-11-19 20:00] VITALS: BP_SYST 108
[2017-11-19] MEDS: SENNOSIDES 8.6 MG TABLET PO SCH (20:26)
[2017-11-19] MEDS: CHOLECALCIFEROL (VITAMIN D3) 2,000 UNIT TABLET PO SCH (20:26)
[2017-11-20 00:02] VITALS: BP_SYST 110
[2017-11-20] MEDS: HYDROcodone/ACETAMIN 10-325 MG TAB PO PRN ×2 (04:06→20:41)
[2017-11-20] MEDS: KETOROLAC TROMETHAMINE 15 MG VIAL IM PRN ×2 (06:34→15:20)
[2017-11-20 07:25] VITALS: BP_SYST 134
[2017-11-20] MEDS: BISACODYL 10 MG/SUPPOSITORY RC SCH ×2 (09:00→09:28)
[2017-11-20] MEDS: DOCUSATE SODIUM 100 MG CAPSULE PO SCH ×3 (09:00→22:03)
[2017-11-20] MEDS: NA PHOS,M-B/NA PHOS,DI-BA 118 ML (FLEET ENEMA) RC SCH (09:00)
[2017-11-20] MEDS: APIXABAN 2.5 MG TABLET PO SCH ×2 (09:25→21:59)
[2017-11-20] MEDS: AMIODARONE HCL 200 MG TABLET PO SCH ×2 (09:25→22:03)
[2017-11-20] MEDS: ATORVASTATIN 20 MG TABLET PO SCH (09:26)
[2017-11-20] MEDS: HALOPERIDOL 1 MG TABLET (HALDOL) PO SCH ×3 (09:26→22:00)
[2017-11-20] MEDS: METOPROLOL SUCCINATE 50 MG TAB.SR.24H (TOPROL XL) PO SCH ×2 (09:26→22:03)
[2017-11-20] MEDS: FERROUS SULFATE 325 MG TABLET.DR PO SCH (09:26)
[2017-11-20] MEDS: MAGNESIUM OXIDE 400 MG TABLET PO SCH (09:27)
[2017-11-20] MEDS: ASCORBIC ACID 500 MG TABLET PO SCH (09:27)
[2017-11-20] MEDS: THIAMINE HCL 100 MG TABLET PO SCH (09:27)
[2017-11-20] MEDS: LOSARTAN POTASSIUM 25 MG TABLET PO SCH (09:27)
[2017-11-20] MEDS: MILK OF MAGNESIA 30 ML UDC PO SCH (09:27)
[2017-11-20] MEDS: chlordiazePOXIDE HCL 25 MG CAPSULE PO SCH ×2 (09:27→22:00)
[2017-11-20] MEDS: MULTIVITAMINS TAB 1 TABLET PO SCH (09:27)
[2017-11-20] MEDS: cloNIDine HCL 0.2 MG TABLET PO SCH ×2 (09:27→22:04)
[2017-11-20] MEDS: BUMETANIDE 1 MG TABLET PO SCH (09:30)
[2017-11-20 12:00] VITALS: BP_SYST 140
[2017-11-20 16:00] VITALS: BP_SYST 135
[2017-11-20 20:20] VITALS: BP_SYST 103
[2017-11-20] MEDS: CHOLECALCIFEROL (VITAMIN D3) 2,000 UNIT TABLET PO SCH (21:59)
[2017-11-20] MEDS: SENNOSIDES 8.6 MG TABLET PO SCH (22:03)
[2017-11-21] VITALS (7 sets, daily range): BP systolic 85–118
[2017-11-21] MEDS: BISACODYL 10 MG/SUPPOSITORY RC SCH (09:00)
[2017-11-21] MEDS: NA PHOS,M-B/NA PHOS,DI-BA 118 ML (FLEET ENEMA) RC SCH (09:00)
[2017-11-21] MEDS: ATORVASTATIN 20 MG TABLET PO SCH (09:23)
[2017-11-21] MEDS: METOPROLOL SUCCINATE 50 MG TAB.SR.24H (TOPROL XL) PO SCH (09:23)
[2017-11-21] MEDS: THIAMINE HCL 100 MG TABLET PO SCH (09:24)
[2017-11-21] MEDS: MULTIVITAMINS TAB 1 TABLET PO SCH (09:24)
[2017-11-21] MEDS: ASCORBIC ACID 500 MG TABLET PO SCH (09:24)
[2017-11-21] MEDS: FERROUS SULFATE 325 MG TABLET.DR PO SCH (09:25)
[2017-11-21] MEDS: HALOPERIDOL 1 MG TABLET (HALDOL) PO SCH ×2 (09:25→14:09)
[2017-11-21] MEDS: MAGNESIUM OXIDE 400 MG TABLET PO SCH (09:25)
[2017-11-21] MEDS: cloNIDine HCL 0.2 MG TABLET PO SCH (09:25)
[2017-11-21] MEDS: DOCUSATE SODIUM 100 MG CAPSULE PO SCH (09:25)
[2017-11-21] MEDS: APIXABAN 2.5 MG TABLET PO SCH (09:25)
[2017-11-21] MEDS: AMIODARONE HCL 200 MG TABLET PO SCH (09:26)
[2017-11-21] MEDS: MILK OF MAGNESIA 30 ML UDC PO SCH (09:26)
[2017-11-21] MEDS: LOSARTAN POTASSIUM 25 MG TABLET PO SCH (09:26)
[2017-11-21] MEDS: BUMETANIDE 1 MG TABLET PO SCH (09:27)
[2017-11-21] MEDS: KETOROLAC TROMETHAMINE 15 MG VIAL IM PRN (09:36)
[2017-11-21] MEDS: HYDROcodone/ACETAMIN 10-325 MG TAB PO PRN (14:08)
[2017-11-21] MEDS ORDERED: NS 500 ML IV ONE (16:15)
== END 2017-11-21 19:12 | DRG 896 ==
LOC: SED 12:42 → STU 15:14 → SIC 20:17 → STU 11-06 19:03 → SMU 11-21 16:23
PROVIDERS: ADMIT Family Medicine; ATTEND Family Medicine
DX: F10.221 Alcohol dependence with intoxication delirium (principal); G92 Toxic encephalopathy; F33.3 Major depressive disorder, recurrent, severe with psychotic symptoms; I48.92 Unspecified atrial flutter; N18.4 Chronic kidney disease, stage 4 (severe); F10.231 Alcohol dependence with withdrawal delirium; I48.2 Chronic atrial fibrillation; G62.1 Alcoholic polyneuropathy; G89.4 Chronic pain syndrome; E87.6 Hypokalemia; S70.00XA Contusion of unspecified hip, initial encounter; I27.81 Cor pulmonale (chronic); M19.90 Unspecified osteoarthritis, unspecified site; J44.9 Chronic obstructive pulmonary disease, unspecified; I12.9 Hypertensive chronic kidney disease with stage 1 through stage 4 chronic kidney disease, or unspecified chronic kidney disease; S13.4XXA Sprain of ligaments of cervical spine, initial encounter; I49.9 Cardiac arrhythmia, unspecified; E66.9 Obesity, unspecified; Z68.34 Body mass index [BMI] 34.0-34.9, adult; R29.6 Repeated falls; Y90.8 Blood alcohol level of 240 mg/100 ml or more; Z96.641 Presence of right artificial hip joint; W18.39XA Other fall on same level, initial encounter; Z91.81 History of falling; Y93.89 Activity, other specified; Y92.59 Other trade areas as the place of occurrence of the external cause; Y99.8 Other external cause status; Z87.891 Personal history of nicotine dependence; Z79.899 Other long term (current) drug therapy
CPT/HCPCS: 36415; 70450-TC; 71045; 72125-TC; 72170-TC; 73552; 73564; 80048; 80053; 80061; 80307; 81003; 82140-TC; 82150-TC; 82550-TC; 83690-TC; 83735-TC; 83880; 84484; 85007; 85025; 85027; 85610-TC; 85730-TC; 87081; 93005; 93306; 96361; 96365; 96375; 96376; 97110-GP; 97116-GP; 97530-GP; 97535-GP; 99285; G0482; J1160; J1885; J2060; J3411; J3475; J3490; J7030; J7040; J7060

== ENCOUNTER 2018-08-22 11:13 | Inpatient (IN) | payer OTHER ==
[~2018-08-22] VITALS: Ht 177.8 cm; Wt 102.5 kg
[2018-08-22] VITALS (7 sets, daily range): BP systolic 129–174
[~2018-08-22 11:13] MED LIST: ACET325T53 PO; AMI200 PO; AMIN30LI33 PO; APIX5TAB PO; ASCO-339 PO; BUME1TAB4 PO; DICL50TA9 PO; DOCU-144 PO; DULR10 RC; FERR-57 PO; HYDR-4100 PO; LIP40 PO; LOSA25TA3 PO; MAGN400T10 PO; METO50TA7 PO; MOM PO; MULT-1117; NA P133E41 RC; OXYC10TA56 PO; SENN-153 PO; VITD2000 PO
[2018-08-22] MEDS ORDERED: NACL 0.9% 1,000 ML IV ONE (11:45)
[2018-08-22 12:12] LABS: HEMATOCRIT 43.6 % (36-54); HEMOGLOBIN 14.2 g/dL (14.0-18.0); MEAN CORPUSCULAR HEMOGLOBIN 30 pg (27-31); MEAN CORPUSCULAR VOLUME 93 fL (79.0-98.0); RED BLOOD CELL COUNT(AUTO) 4.68 MIL/uL (4.2-6.2); WHITE BLOOD COUNT (AUTO) 4.6 K/uL (4.8-10.8)
[2018-08-22 12:13] LABS: BASOPHILS % (AUTO) 0.1 % (0.0-2.0); EOSINOPHILS # (AUTO) 0.1 K/uL (0.0-0.4); EOSINOPHILS % (AUTO) 1.9 % (0.0-4.0); LYMPHOCYTES # (AUTO) 1.9 K/uL (1.0-5.5); LYMPHOCYTES % (AUTO) 41.7 % (20.5-51.5); MEAN CORPUSCULAR HGB CONC 33 % (32-36); MONOCYTES # (AUTO) 0.5 K/uL (0.0-1.0); MONOCYTES % (AUTO) 10.7 % (1.7-9.3); NEUTROPHILS # (AUTO) 2.1 K/uL (1.8-7.7); NEUTROPHILS % (AUTO) 45.6 % (40.0-70.0); PLATELET COUNT (AUTO) 106 K/uL (130-430); RED CELL DISTRIBUTION WIDTH 17.3 % (9.0-15.0)
[2018-08-22 12:19] LABS: ANION GAP 16 (5-15); CALCIUM 8.7 mg/dL (8.4-11.0); CHLORIDE 108 mmol/L (98-107); POTASSIUM 3.1 mmol/L (3.5-5.1); SODIUM SERUM 148 mmol/L (136-145); UREA NITROGEN, BLOOD 7 mg/dL (8-21)
[2018-08-22 12:27] LABS: ALANINE AMINOTRANSFERASE 15 U/L (12-78); ALBUMIN 3.4 g/dL (3.4-4.8); ASPARTATE AMINOTRANSFERASE 44 U/L (10-37); CREATININE 1.02 mg/dL (0.55-1.30); GLUCOSE 85 mg/dL (70-99); TOTAL BILIRUBIN 0.8 mg/dL (0.0-1.0)
[2018-08-22 12:29] LABS: GFR AFRICAN AMERICAN 93 mL/min (>90)
[2018-08-22 14:17] LABS: BILIRUBIN,URINE NEGATIVE (NEGATIVE); BLOOD, URINE NEGATIVE (NEGATIVE); CLARITY/URINE CLEAR (CLEAR); COLOR,URINE YELLOW (YELLOW); GLUCOSE,URINE NEGATIVE (NEGATIVE); KETONES,URINE NEGATIVE (NEGATIVE); LEUKOCYTE ESTERASE ,URINE NEGATIVE (NEGATIVE); NITRITE, URINE NEGATIVE (NEGATIVE); PROTEIN URINE 1+ (NEGATIVE); UROBILINOGEN,URINE 0.2 (0.2-1.0)
[2018-08-22 14:33] LABS: BACTERIA,URINE RARE /HPF (None Seen); MUCUS,URINE 1+ /LPF (None Seen); RBC,URINE 0-3 /HPF (0-3); WBC,URINE 0-3 /HPF (0-3)
[2018-08-22] MEDS ORDERED: ACETAMINOPHEN 325 MG TABLET PO ONE (15:30)
[2018-08-22] MEDS ORDERED: IOHEXOL 350 mgI/mL, 150 ML INFUS..BTL IV ONE (15:43)
[2018-08-22] MEDS ORDERED: IPRATROPIUM/ALBUTEROL SULFATE 3 ML AMPUL.NEB (DUONEB) INH PRN (16:30)
[2018-08-22] MEDS ORDERED: ASCORBIC ACID 500 MG TABLET PO ONE (16:30)
[2018-08-22] MEDS ORDERED: MILK OF MAGNESIA 30 ML UDC PO PRN (16:30)
[2018-08-22] MEDS ORDERED: AMIODARONE HCL 200 MG TABLET PO ONE (16:30)
[2018-08-22] MEDS ORDERED: cloNIDine HCL 0.1 MG TABLET PO PRN (16:30)
[2018-08-22] MEDS ORDERED: BISACODYL 10 MG/SUPPOSITORY RC PRN (16:30)
[2018-08-22] MEDS ORDERED: POTASSIUM CHLORIDE 20 MEQ TAB.PRT.SR PO ONE (16:30)
[2018-08-22] MEDS ORDERED: chlordiazePOXIDE HCL 25 MG CAPSULE PO ONE (16:30)
[2018-08-22] MEDS ORDERED: LORazepam 2 MG/ML VIAL (FOR ER USE) IVP ONE (16:30)
[2018-08-22] MEDS ORDERED: APIXABAN 2.5 MG TABLET PO ONE (16:45)
[2018-08-22 17:25] LABS: PROTHROMBIN TIME 10.4 SECS (9.5-12.5)
[2018-08-22] MEDS ORDERED: DILTIAZEM HCL 25 MG/5 ML VIAL IVP ONE (18:15)
[2018-08-22] MEDS ORDERED: MORPHINE 4 MG/ML INJ. SYRINGE IVP ONE (18:15)
[2018-08-22] MEDS ORDERED: DILTIAZEM HCL 125 MG in D5W 100 ML IV SCH (18:15)
[2018-08-22] MEDS ORDERED: THIAMINE HCL 100 MG TABLET PO ONE (18:30)
[2018-08-22] MEDS: FOLIC ACID 1 MG, THIAMINE HCL 100 MG, MAGNESIUM SULFATE 1 GM, MVI 10 ML in NACL 0.9% 1,... IV SCH (18:32)
[2018-08-22] MEDS: METOPROLOL SUCCINATE 50 MG TAB.SR.24H (TOPROL XL) PO SCH (18:45)
[2018-08-22] MEDS: FERROUS SULFATE 325 MG TABLET.DR PO SCH (20:48)
[2018-08-22] MEDS: oxyCODONE HCL 10 MG TAB.ER.12H PO SCH (20:48)
[2018-08-22] MEDS: chlordiazePOXIDE HCL 25 MG CAPSULE PO SCH (20:49)
[2018-08-22] MEDS: APIXABAN 2.5 MG TABLET PO SCH (20:52)
[2018-08-22] MEDS ORDERED: AMIODARONE HCL 200 MG TABLET PO SCH (21:00)
[2018-08-22] MEDS: LORazepam 2 MG/ML VIAL IVP PRN (22:18)
[2018-08-22] MEDS: MORPHINE 4 MG/ML INJ. SYRINGE IVP PRN (23:57)
[2018-08-23] VITALS (24 sets, daily range): BP systolic 93–157
[2018-08-23] MEDS: LORazepam 2 MG/ML VIAL IVP PRN ×2 (02:30→10:57)
[2018-08-23] MEDS: MORPHINE 4 MG/ML INJ. SYRINGE IVP PRN ×3 (04:19→22:46)
[2018-08-23 07:36] LABS: CALCIUM 8.6 mg/dL (8.4-11.0); CREATININE 0.96 mg/dL (0.55-1.30); POTASSIUM 3.8 mmol/L (3.5-5.1)
[2018-08-23 07:57] LABS: HEMATOCRIT 39.8 % (36-54); HEMOGLOBIN 13.2 g/dL (14.0-18.0); MEAN CORPUSCULAR HEMOGLOBIN 31 pg (27-31); MEAN CORPUSCULAR HGB CONC 33 % (32-36); MEAN CORPUSCULAR VOLUME 94 fL (79.0-98.0); PLATELET COUNT (AUTO) 79 K/uL (130-430); RED BLOOD CELL COUNT(AUTO) 4.25 MIL/uL (4.2-6.2); RED CELL DISTRIBUTION WIDTH 17.7 % (9.0-15.0); WHITE BLOOD COUNT (AUTO) 4.7 K/uL (4.8-10.8)
[2018-08-23 07:58] LABS: BASOPHILS % (AUTO) 0.2 % (0.0-2.0); EOSINOPHILS # (AUTO) 0.1 K/uL (0.0-0.4); EOSINOPHILS % (AUTO) 1.3 % (0.0-4.0); LYMPHOCYTES # (AUTO) 0.7 K/uL (1.0-5.5); LYMPHOCYTES % (AUTO) 14.5 % (20.5-51.5); MONOCYTES # (AUTO) 0.5 K/uL (0.0-1.0); MONOCYTES % (AUTO) 11.6 % (1.7-9.3); NEUTROPHILS # (AUTO) 3.4 K/uL (1.8-7.7); NEUTROPHILS % (AUTO) 72.4 % (40.0-70.0)
[2018-08-23] MEDS: CHOLECALCIFEROL (VITAMIN D3) 2,000 UNIT TABLET PO SCH (08:47)
[2018-08-23] MEDS: FERROUS SULFATE 325 MG TABLET.DR PO SCH ×2 (08:47→21:15)
[2018-08-23] MEDS: METOPROLOL SUCCINATE 50 MG TAB.SR.24H (TOPROL XL) PO SCH ×2 (08:47→21:15)
[2018-08-23] MEDS: chlordiazePOXIDE HCL 25 MG CAPSULE PO SCH ×3 (08:48→21:13)
[2018-08-23] MEDS: POTASSIUM CHLORIDE 20 MEQ TAB.PRT.SR PO SCH (08:48)
[2018-08-23] MEDS: APIXABAN 2.5 MG TABLET PO SCH ×2 (08:49→21:21)
[2018-08-23] MEDS: ATORVASTATIN 20 MG TABLET PO SCH (08:49)
[2018-08-23] MEDS: LOSARTAN POTASSIUM 25 MG TABLET PO SCH (08:49)
[2018-08-23] MEDS: AMIODARONE HCL 200 MG TABLET PO SCH ×2 (08:50→21:13)
[2018-08-23] MEDS: ASCORBIC ACID 500 MG TABLET PO SCH (08:50)
[2018-08-23] MEDS: oxyCODONE HCL 10 MG TAB.ER.12H PO SCH ×2 (08:51→21:15)
[2018-08-23] MEDS: THIAMINE HCL 100 MG TABLET PO SCH (08:52)
[2018-08-23] MEDS ORDERED: METOPROLOL SUCCINATE 50 MG TAB.SR.24H (TOPROL XL) PO SCH (09:00)
[2018-08-23] MEDS ORDERED: AMIODARONE HCL 200 MG TABLET PO SCH (09:00)
[2018-08-23] MEDS: FOLIC ACID 1 MG, THIAMINE HCL 100 MG, MAGNESIUM SULFATE 1 GM, MVI 10 ML in NACL 0.9% 1,... IV SCH (15:40)
[2018-08-24] VITALS (13 sets, daily range): BP systolic 109–135
[2018-08-24] MEDS: LORazepam 2 MG/ML VIAL IVP PRN ×2 (00:29→23:54)
[2018-08-24] MEDS: MORPHINE 4 MG/ML INJ. SYRINGE IVP PRN ×3 (04:01→20:35)
[2018-08-24 06:09] LABS: HEMOGLOBIN 12.6 g/dL (14.0-18.0); RED BLOOD CELL COUNT(AUTO) 4.11 MIL/uL (4.2-6.2); WHITE BLOOD COUNT (AUTO) 4.6 K/uL (4.8-10.8)
[2018-08-24 06:10] LABS: BASOPHILS % (AUTO) 0.2 % (0.0-2.0); EOSINOPHILS % (AUTO) 2.5 % (0.0-4.0); HEMATOCRIT 38.8 % (36-54); LYMPHOCYTES # (AUTO) 0.8 K/uL (1.0-5.5); LYMPHOCYTES % (AUTO) 18.3 % (20.5-51.5); MEAN CORPUSCULAR HEMOGLOBIN 31 pg (27-31); MEAN CORPUSCULAR HGB CONC 32 % (32-36); MEAN CORPUSCULAR VOLUME 95 fL (79.0-98.0); MONOCYTES # (AUTO) 0.5 K/uL (0.0-1.0); MONOCYTES % (AUTO) 11.4 % (1.7-9.3); NEUTROPHILS # (AUTO) 3.1 K/uL (1.8-7.7); NEUTROPHILS % (AUTO) 67.6 % (40.0-70.0); PLATELET COUNT (AUTO) 60 K/uL (130-430); RED CELL DISTRIBUTION WIDTH 17.2 % (9.0-15.0)
[2018-08-24 06:11] LABS: EOSINOPHILS # (AUTO) 0.1 K/uL (0.0-0.4)
[2018-08-24 06:54] LABS: CALCIUM 8.8 mg/dL (8.4-11.0); CREATININE 0.86 mg/dL (0.55-1.30); POTASSIUM 4.3 mmol/L (3.5-5.1)
[2018-08-24 07:07] LABS: ALBUMIN 2.9 g/dL (3.4-4.8); TOTAL BILIRUBIN 1.5 mg/dL (0.0-1.0)
[2018-08-24] MEDS: chlordiazePOXIDE HCL 25 MG CAPSULE PO SCH ×3 (09:16→20:36)
[2018-08-24] MEDS: FERROUS SULFATE 325 MG TABLET.DR PO SCH ×2 (09:16→20:36)
[2018-08-24] MEDS: APIXABAN 2.5 MG TABLET PO SCH ×2 (09:17→20:37)
[2018-08-24] MEDS: ASCORBIC ACID 500 MG TABLET PO SCH (09:17)
[2018-08-24] MEDS: POTASSIUM CHLORIDE 20 MEQ TAB.PRT.SR PO SCH (09:17)
[2018-08-24] MEDS: CHOLECALCIFEROL (VITAMIN D3) 2,000 UNIT TABLET PO SCH (09:17)
[2018-08-24] MEDS: ATORVASTATIN 20 MG TABLET PO SCH (09:18)
[2018-08-24] MEDS: THIAMINE HCL 100 MG TABLET PO SCH (09:18)
[2018-08-24] MEDS: oxyCODONE HCL 10 MG TAB.ER.12H PO SCH ×2 (09:18→20:36)
[2018-08-24] MEDS: AMIODARONE HCL 200 MG TABLET PO SCH ×2 (09:18→20:36)
[2018-08-24] MEDS: METOPROLOL SUCCINATE 50 MG TAB.SR.24H (TOPROL XL) PO SCH ×2 (09:19→20:40)
[2018-08-24] MEDS: LOSARTAN POTASSIUM 25 MG TABLET PO SCH (09:20)
[2018-08-24] MEDS: FOLIC ACID 1 MG, THIAMINE HCL 100 MG, MAGNESIUM SULFATE 1 GM, MVI 10 ML in NACL 0.9% 1,... IV SCH (17:38)
[2018-08-25] MEDS: MORPHINE 4 MG/ML INJ. SYRINGE IVP PRN ×4 (01:13→20:55)
[2018-08-25 02:13] VITALS: BP_SYST 121
[2018-08-25] MEDS: LORazepam 2 MG/ML VIAL IVP PRN ×3 (03:32→22:48)
[2018-08-25 07:21] LABS: ALBUMIN 3.2 g/dL (3.4-4.8); CALCIUM 9.4 mg/dL (8.4-11.0); CREATININE 0.83 mg/dL (0.55-1.30); POTASSIUM 4.2 mmol/L (3.5-5.1); TOTAL BILIRUBIN 1.3 mg/dL (0.0-1.0)
[2018-08-25 07:55] LABS: HEMATOCRIT 40.9 % (36-54); HEMOGLOBIN 13.2 g/dL (14.0-18.0); MEAN CORPUSCULAR HEMOGLOBIN 31 pg (27-31); MEAN CORPUSCULAR HGB CONC 32 % (32-36); MEAN CORPUSCULAR VOLUME 96 fL (79.0-98.0); RED BLOOD CELL COUNT(AUTO) 4.27 MIL/uL (4.2-6.2); RED CELL DISTRIBUTION WIDTH 17.3 % (9.0-15.0); WHITE BLOOD COUNT (AUTO) 3.6 K/uL (4.8-10.8)
[2018-08-25 07:56] LABS: BASOPHILS % (AUTO) 0.1 % (0.0-2.0); EOSINOPHILS # (AUTO) 0.1 K/uL (0.0-0.4); EOSINOPHILS % (AUTO) 3.5 % (0.0-4.0); LYMPHOCYTES # (AUTO) 0.7 K/uL (1.0-5.5); LYMPHOCYTES % (AUTO) 19.8 % (20.5-51.5); MONOCYTES # (AUTO) 0.4 K/uL (0.0-1.0); NEUTROPHILS # (AUTO) 2.3 K/uL (1.8-7.7); NEUTROPHILS % (AUTO) 64.6 % (40.0-70.0)
[2018-08-25 08:05] VITALS: BP_SYST 137
[2018-08-25] MEDS: POTASSIUM CHLORIDE 20 MEQ TAB.PRT.SR PO SCH (08:14)
[2018-08-25] MEDS: ASCORBIC ACID 500 MG TABLET PO SCH (08:16)
[2018-08-25] MEDS: ATORVASTATIN 20 MG TABLET PO SCH (08:16)
[2018-08-25] MEDS: THIAMINE HCL 100 MG TABLET PO SCH (08:16)
[2018-08-25] MEDS: chlordiazePOXIDE HCL 25 MG CAPSULE PO SCH ×3 (08:17→20:54)
[2018-08-25] MEDS: CHOLECALCIFEROL (VITAMIN D3) 2,000 UNIT TABLET PO SCH (08:17)
[2018-08-25] MEDS: METOPROLOL SUCCINATE 50 MG TAB.SR.24H (TOPROL XL) PO SCH ×2 (08:17→20:54)
[2018-08-25] MEDS: AMIODARONE HCL 200 MG TABLET PO SCH ×2 (08:17→20:54)
[2018-08-25] MEDS: LOSARTAN POTASSIUM 25 MG TABLET PO SCH (08:18)
[2018-08-25] MEDS: oxyCODONE HCL 10 MG TAB.ER.12H PO SCH ×2 (08:18→20:55)
[2018-08-25] MEDS: FERROUS SULFATE 325 MG TABLET.DR PO SCH ×2 (08:18→20:53)
[2018-08-25] MEDS: APIXABAN 2.5 MG TABLET PO SCH ×2 (08:19→20:53)
[2018-08-25 11:07] LABS: PLATELET COUNT (AUTO) 68 K/uL (130-430)
[2018-08-25 11:41] VITALS: BP_SYST 121
[2018-08-25] MEDS: FOLIC ACID 1 MG, THIAMINE HCL 100 MG, MAGNESIUM SULFATE 1 GM, MVI 10 ML in NACL 0.9% 1,... IV SCH (15:49)
[2018-08-25 16:00] VITALS: BP_SYST 138
[2018-08-25 20:00] VITALS: BP_SYST 105
[2018-08-25 23:49] VITALS: BP_SYST 153
[2018-08-26 06:10] VITALS: BP_SYST 153
[2018-08-26 08:00] VITALS: BP_SYST 124
[2018-08-26 08:05] LABS: HEMATOCRIT 45.5 % (36-54); MEAN CORPUSCULAR VOLUME 96 fL (79.0-98.0); RED BLOOD CELL COUNT(AUTO) 4.74 MIL/uL (4.2-6.2); WHITE BLOOD COUNT (AUTO) 5.9 K/uL (4.8-10.8)
[2018-08-26 08:06] LABS: BASOPHILS % (AUTO) 0.1 % (0.0-2.0); EOSINOPHILS # (AUTO) 0.1 K/uL (0.0-0.4); EOSINOPHILS % (AUTO) 1.2 % (0.0-4.0); LYMPHOCYTES # (AUTO) 0.4 K/uL (1.0-5.5); LYMPHOCYTES % (AUTO) 6.7 % (20.5-51.5); MEAN CORPUSCULAR HEMOGLOBIN 32 pg (27-31); MEAN CORPUSCULAR HGB CONC 33 % (32-36); MONOCYTES # (AUTO) 0.5 K/uL (0.0-1.0); MONOCYTES % (AUTO) 9.2 % (1.7-9.3); NEUTROPHILS # (AUTO) 4.9 K/uL (1.8-7.7); NEUTROPHILS % (AUTO) 82.8 % (40.0-70.0); PLATELET COUNT (AUTO) 89 K/uL (130-430); RED CELL DISTRIBUTION WIDTH 17.7 % (9.0-15.0)
[2018-08-26 08:33] LABS: CALCIUM 9.5 mg/dL (8.4-11.0); CREATININE 0.9 mg/dL (0.55-1.30); POTASSIUM 4.8 mmol/L (3.5-5.1)
[2018-08-26 08:40] LABS: ALBUMIN 2.8 g/dL (3.4-4.8); TOTAL BILIRUBIN 1.1 mg/dL (0.0-1.0)
[2018-08-26] MEDS: THIAMINE HCL 100 MG TABLET PO SCH ×2 (09:00→10:12)
[2018-08-26] MEDS: METOPROLOL SUCCINATE 50 MG TAB.SR.24H (TOPROL XL) PO SCH ×2 (10:11→21:11)
[2018-08-26] MEDS: AMIODARONE HCL 200 MG TABLET PO SCH ×2 (10:11→21:08)
[2018-08-26] MEDS: FERROUS SULFATE 325 MG TABLET.DR PO SCH ×2 (10:11→21:11)
[2018-08-26] MEDS: ATORVASTATIN 20 MG TABLET PO SCH (10:11)
[2018-08-26] MEDS: NEPHROVITE, (FOLIC ACID/VITAMIN B COMP W-C 1 TAB) PO SCH (10:11)
[2018-08-26] MEDS: oxyCODONE HCL 10 MG TAB.ER.12H PO SCH ×2 (10:12→21:07)
[2018-08-26] MEDS: LOSARTAN POTASSIUM 25 MG TABLET PO SCH (10:12)
[2018-08-26] MEDS: POTASSIUM CHLORIDE 20 MEQ TAB.PRT.SR PO SCH (10:12)
[2018-08-26] MEDS: CHOLECALCIFEROL (VITAMIN D3) 2,000 UNIT TABLET PO SCH (10:13)
[2018-08-26] MEDS: ASCORBIC ACID 500 MG TABLET PO SCH (10:13)
[2018-08-26] MEDS: chlordiazePOXIDE HCL 25 MG CAPSULE PO SCH (10:13)
[2018-08-26] MEDS: APIXABAN 2.5 MG TABLET PO SCH ×2 (10:18→21:13)
[2018-08-26] MEDS: CITALOPRAM HYDROBROMIDE 20 MG TABLET PO SCH (10:18)
[2018-08-26 12:00] VITALS: BP_SYST 107
[2018-08-26] MEDS ORDERED: TEMAZEPAM 15 MG CAPSULE PO PRN (16:00)
[2018-08-26] MEDS: MORPHINE 4 MG/ML INJ. SYRINGE IVP PRN ×2 (16:17→20:50)
[2018-08-26 16:19] VITALS: BP_SYST 107
[2018-08-26] MEDS: chlordiazePOXIDE HCL 10 MG CAPSULE PO SCH ×2 (16:20→21:07)
[2018-08-26] MEDS ORDERED: GABAPENTIN 100 MG CAPSULE PO ONE (17:15)
[2018-08-26 20:00] VITALS: BP_SYST 102
[2018-08-26] MEDS: LORazepam 2 MG/ML VIAL IVP PRN (20:52)
[2018-08-26] MEDS: GABAPENTIN 100 MG CAPSULE PO SCH (21:11)
[2018-08-27 00:38] VITALS: BP_SYST 149
[2018-08-27] MEDS: LORazepam 2 MG/ML VIAL IVP PRN (03:25)
[2018-08-27] MEDS: MORPHINE 4 MG/ML INJ. SYRINGE IVP PRN ×2 (03:26→15:36)
[2018-08-27 08:00] VITALS: BP_SYST 102
[2018-08-27] MEDS: NEPHROVITE, (FOLIC ACID/VITAMIN B COMP W-C 1 TAB) PO SCH (09:01)
[2018-08-27] MEDS: GABAPENTIN 100 MG CAPSULE PO SCH ×3 (09:01→20:08)
[2018-08-27] MEDS: ATORVASTATIN 20 MG TABLET PO SCH (09:02)
[2018-08-27] MEDS: CITALOPRAM HYDROBROMIDE 20 MG TABLET PO SCH (09:02)
[2018-08-27] MEDS: THIAMINE HCL 100 MG TABLET PO SCH (09:02)
[2018-08-27] MEDS: chlordiazePOXIDE HCL 10 MG CAPSULE PO SCH ×2 (09:02→13:00)
[2018-08-27] MEDS: CHOLECALCIFEROL (VITAMIN D3) 2,000 UNIT TABLET PO SCH (09:04)
[2018-08-27] MEDS: APIXABAN 2.5 MG TABLET PO SCH ×2 (09:04→20:09)
[2018-08-27] MEDS: FERROUS SULFATE 325 MG TABLET.DR PO SCH ×2 (09:04→20:08)
[2018-08-27] MEDS: ASCORBIC ACID 500 MG TABLET PO SCH (09:05)
[2018-08-27] MEDS: METOPROLOL SUCCINATE 50 MG TAB.SR.24H (TOPROL XL) PO SCH ×2 (09:06→21:00)
[2018-08-27] MEDS: LOSARTAN POTASSIUM 25 MG TABLET PO SCH (09:06)
[2018-08-27] MEDS: oxyCODONE HCL 10 MG TAB.ER.12H PO SCH ×2 (09:07→21:00)
[2018-08-27] MEDS: AMIODARONE HCL 200 MG TABLET PO SCH ×2 (09:08→20:18)
[2018-08-27 12:25] VITALS: BP_SYST 103
[2018-08-27 16:57] VITALS: BP_SYST 120
[2018-08-27 20:49] VITALS: BP_SYST 101
[2018-08-28 03:23] VITALS: BP_SYST 108
[2018-08-28] MEDS: LORazepam 2 MG/ML VIAL IVP PRN (06:12)
[2018-08-28 07:46] VITALS: BP_SYST 112
[2018-08-28 07:49] LABS: BASOPHILS % (AUTO) 0.2 % (0.0-2.0); EOSINOPHILS # (AUTO) 0.1 K/uL (0.0-0.4); EOSINOPHILS % (AUTO) 2.3 % (0.0-4.0); HEMATOCRIT 38.2 % (36-54); HEMOGLOBIN 12.5 g/dL (14.0-18.0); LYMPHOCYTES # (AUTO) 0.7 K/uL (1.0-5.5); LYMPHOCYTES % (AUTO) 13.8 % (20.5-51.5); MEAN CORPUSCULAR HEMOGLOBIN 31 pg (27-31); MEAN CORPUSCULAR HGB CONC 33 % (32-36); MEAN CORPUSCULAR VOLUME 96 fL (79.0-98.0); MONOCYTES # (AUTO) 1.1 K/uL (0.0-1.0); MONOCYTES % (AUTO) 21.7 % (1.7-9.3); NEUTROPHILS # (AUTO) 3.2 K/uL (1.8-7.7); PLATELET COUNT (AUTO) 145 K/uL (130-430); RED BLOOD CELL COUNT(AUTO) 3.97 MIL/uL (4.2-6.2); RED CELL DISTRIBUTION WIDTH 17.5 % (9.0-15.0); WHITE BLOOD COUNT (AUTO) 5.1 K/uL (4.8-10.8)
[2018-08-28 07:57] LABS: ALBUMIN 2.9 g/dL (3.4-4.8); CALCIUM 9.9 mg/dL (8.4-11.0); CREATININE 1.03 mg/dL (0.55-1.30); POTASSIUM 4.4 mmol/L (3.5-5.1); TOTAL BILIRUBIN 0.9 mg/dL (0.0-1.0)
[2018-08-28] MEDS: MORPHINE 4 MG/ML INJ. SYRINGE IVP PRN (08:48)
[2018-08-28] MEDS: LOSARTAN POTASSIUM 25 MG TABLET PO SCH (09:00)
[2018-08-28] MEDS: FERROUS SULFATE 325 MG TABLET.DR PO SCH ×2 (09:30→21:21)
[2018-08-28] MEDS: GABAPENTIN 100 MG CAPSULE PO SCH ×3 (09:30→21:20)
[2018-08-28] MEDS: NEPHROVITE, (FOLIC ACID/VITAMIN B COMP W-C 1 TAB) PO SCH (09:30)
[2018-08-28] MEDS: ATORVASTATIN 20 MG TABLET PO SCH (09:30)
[2018-08-28] MEDS: THIAMINE HCL 100 MG TABLET PO SCH (09:30)
[2018-08-28] MEDS: CITALOPRAM HYDROBROMIDE 20 MG TABLET PO SCH (09:30)
[2018-08-28] MEDS: CHOLECALCIFEROL (VITAMIN D3) 2,000 UNIT TABLET PO SCH (09:31)
[2018-08-28] MEDS: AMIODARONE HCL 200 MG TABLET PO SCH ×2 (09:32→21:21)
[2018-08-28] MEDS: oxyCODONE HCL 10 MG TAB.ER.12H PO SCH ×2 (09:32→21:20)
[2018-08-28] MEDS: ASCORBIC ACID 500 MG TABLET PO SCH (09:33)
[2018-08-28] MEDS: APIXABAN 2.5 MG TABLET PO SCH ×2 (09:33→21:20)
[2018-08-28] MEDS: METOPROLOL SUCCINATE 50 MG TAB.SR.24H (TOPROL XL) PO SCH ×2 (09:34→21:00)
[2018-08-28 12:51] VITALS: BP_SYST 100
[2018-08-28 16:12] VITALS: BP_SYST 110
[2018-08-28 16:30] VITALS: BP_SYST 110
[2018-08-29 00:59] VITALS: BP_SYST 113
[2018-08-29] MEDS: MORPHINE 4 MG/ML INJ. SYRINGE IVP PRN ×2 (04:21→14:42)
[2018-08-29 08:55] VITALS: BP_SYST 105
[2018-08-29] MEDS: CITALOPRAM HYDROBROMIDE 20 MG TABLET PO SCH (09:01)
[2018-08-29] MEDS: ASCORBIC ACID 500 MG TABLET PO SCH (09:01)
[2018-08-29] MEDS: NEPHROVITE, (FOLIC ACID/VITAMIN B COMP W-C 1 TAB) PO SCH (09:01)
[2018-08-29] MEDS: AMIODARONE HCL 200 MG TABLET PO SCH ×2 (09:02→20:19)
[2018-08-29] MEDS: oxyCODONE HCL 10 MG TAB.ER.12H PO SCH ×2 (09:03→20:22)
[2018-08-29] MEDS: LOSARTAN POTASSIUM 25 MG TABLET PO SCH (09:03)
[2018-08-29] MEDS: ATORVASTATIN 20 MG TABLET PO SCH (09:03)
[2018-08-29] MEDS: THIAMINE HCL 100 MG TABLET PO SCH (09:03)
[2018-08-29] MEDS: GABAPENTIN 100 MG CAPSULE PO SCH ×3 (09:03→20:18)
[2018-08-29] MEDS: METOPROLOL SUCCINATE 50 MG TAB.SR.24H (TOPROL XL) PO SCH ×2 (09:04→20:20)
[2018-08-29] MEDS: FERROUS SULFATE 325 MG TABLET.DR PO SCH ×2 (09:04→20:19)
[2018-08-29] MEDS: CHOLECALCIFEROL (VITAMIN D3) 2,000 UNIT TABLET PO SCH (09:04)
[2018-08-29] MEDS: APIXABAN 2.5 MG TABLET PO SCH ×2 (09:06→20:21)
[2018-08-29 12:04] VITALS: BP_SYST 108
[2018-08-29 16:09] VITALS: BP_SYST 100
[2018-08-29 19:10] VITALS: BP_SYST 98
[2018-08-30 00:04] VITALS: BP_SYST 104
[2018-08-30] MEDS: MORPHINE 4 MG/ML INJ. SYRINGE IVP PRN ×2 (00:46→04:26)
[2018-08-30 08:00] VITALS: BP_SYST 110
[2018-08-30] MEDS: METOPROLOL SUCCINATE 50 MG TAB.SR.24H (TOPROL XL) PO SCH ×2 (09:00→20:40)
[2018-08-30] MEDS: AMIODARONE HCL 200 MG TABLET PO SCH ×2 (09:00→20:40)
[2018-08-30] MEDS: ATORVASTATIN 20 MG TABLET PO SCH (09:16)
[2018-08-30] MEDS: oxyCODONE HCL 10 MG TAB.ER.12H PO SCH ×2 (09:16→20:41)
[2018-08-30] MEDS: CHOLECALCIFEROL (VITAMIN D3) 2,000 UNIT TABLET PO SCH (09:17)
[2018-08-30] MEDS: LOSARTAN POTASSIUM 25 MG TABLET PO SCH (09:17)
[2018-08-30] MEDS: NEPHROVITE, (FOLIC ACID/VITAMIN B COMP W-C 1 TAB) PO SCH (09:17)
[2018-08-30] MEDS: ASCORBIC ACID 500 MG TABLET PO SCH (09:17)
[2018-08-30] MEDS: GABAPENTIN 100 MG CAPSULE PO SCH ×2 (09:17→15:00)
[2018-08-30] MEDS: CITALOPRAM HYDROBROMIDE 20 MG TABLET PO SCH (09:17)
[2018-08-30] MEDS: FERROUS SULFATE 325 MG TABLET.DR PO SCH ×2 (09:17→20:39)
[2018-08-30] MEDS: APIXABAN 2.5 MG TABLET PO SCH ×2 (09:18→20:39)
[2018-08-30] MEDS: THIAMINE HCL 100 MG TABLET PO SCH (09:19)
[2018-08-30 12:09] VITALS: BP_SYST 112
[2018-08-30] MEDS: LORazepam 2 MG/ML VIAL IVP PRN (13:43)
[2018-08-30 16:00] VITALS: BP_SYST 130
[2018-08-30] MEDS ORDERED: LORazepam 1 MG TABLET PO PRN (19:00)
[2018-08-30 19:10] VITALS: BP_SYST 104
[2018-08-30] MEDS: GABAPENTIN 300 MG CAPSULE PO SCH (20:39)
[2018-08-31 01:07] VITALS: BP_SYST 135
[2018-08-31 07:03] LABS: BASOPHILS % (AUTO) 0.1 % (0.0-2.0); EOSINOPHILS # (AUTO) 0.1 K/uL (0.0-0.4); EOSINOPHILS % (AUTO) 2.5 % (0.0-4.0); HEMATOCRIT 41.1 % (36-54); HEMOGLOBIN 13.4 g/dL (14.0-18.0); LYMPHOCYTES # (AUTO) 0.7 K/uL (1.0-5.5); LYMPHOCYTES % (AUTO) 17.1 % (20.5-51.5); MEAN CORPUSCULAR HEMOGLOBIN 31 pg (27-31); MEAN CORPUSCULAR HGB CONC 33 % (32-36); MEAN CORPUSCULAR VOLUME 95 fL (79.0-98.0); MONOCYTES # (AUTO) 0.8 K/uL (0.0-1.0); MONOCYTES % (AUTO) 19.2 % (1.7-9.3); NEUTROPHILS # (AUTO) 2.6 K/uL (1.8-7.7); NEUTROPHILS % (AUTO) 61.1 % (40.0-70.0); PLATELET COUNT (AUTO) 246 K/uL (130-430); RED BLOOD CELL COUNT(AUTO) 4.32 MIL/uL (4.2-6.2); RED CELL DISTRIBUTION WIDTH 17.4 % (9.0-15.0); WHITE BLOOD COUNT (AUTO) 4.2 K/uL (4.8-10.8)
[2018-08-31 07:23] LABS: CALCIUM 9.8 mg/dL (8.4-11.0); CREATININE 0.95 mg/dL (0.55-1.30); POTASSIUM 4.3 mmol/L (3.5-5.1)
[2018-08-31 07:31] LABS: ALBUMIN 2.7 g/dL (3.4-4.8); TOTAL BILIRUBIN 0.7 mg/dL (0.0-1.0)
[2018-08-31 08:00] VITALS: BP_SYST 151
[2018-08-31] MEDS: NEPHROVITE, (FOLIC ACID/VITAMIN B COMP W-C 1 TAB) PO SCH (08:37)
[2018-08-31] MEDS: GABAPENTIN 300 MG CAPSULE PO SCH ×2 (08:37→16:34)
[2018-08-31] MEDS: THIAMINE HCL 100 MG TABLET PO SCH (08:37)
[2018-08-31] MEDS: AMIODARONE HCL 200 MG TABLET PO SCH (08:38)
[2018-08-31] MEDS: APIXABAN 2.5 MG TABLET PO SCH (08:39)
[2018-08-31] MEDS: FERROUS SULFATE 325 MG TABLET.DR PO SCH (08:40)
[2018-08-31] MEDS: oxyCODONE HCL 10 MG TAB.ER.12H PO SCH (08:40)
[2018-08-31] MEDS: CITALOPRAM HYDROBROMIDE 20 MG TABLET PO SCH (08:40)
[2018-08-31] MEDS: CHOLECALCIFEROL (VITAMIN D3) 2,000 UNIT TABLET PO SCH (08:40)
[2018-08-31] MEDS: ATORVASTATIN 20 MG TABLET PO SCH (08:40)
[2018-08-31] MEDS: ASCORBIC ACID 500 MG TABLET PO SCH (08:40)
[2018-08-31] MEDS: METOPROLOL SUCCINATE 50 MG TAB.SR.24H (TOPROL XL) PO SCH (08:41)
[2018-08-31] MEDS: LOSARTAN POTASSIUM 25 MG TABLET PO SCH (08:41)
[2018-08-31 12:38] VITALS: BP_SYST 140
[2018-08-31 16:29] VITALS: BP_SYST 131
[2018-08-31 17:46] VITALS: BP_SYST 131
== END 2018-08-31 18:26 | DRG 896 ==
LOC: SED 11:13 → STU 16:08 → SIC 18:32 → STU 08-24 07:00 → SMU 08-25 11:27
PROVIDERS: ADMIT Internal Medicine; ATTEND Internal Medicine
DX: F10.231 Alcohol dependence with withdrawal delirium (principal); G93.41 Metabolic encephalopathy; D61.818 Other pancytopenia; E87.6 Hypokalemia; E78.5 Hyperlipidemia, unspecified; I48.2 Chronic atrial fibrillation; F32.9 Major depressive disorder, single episode, unspecified; W18.39XA Other fall on same level, initial encounter; I10 Essential (primary) hypertension; D69.6 Thrombocytopenia, unspecified; K43.9 Ventral hernia without obstruction or gangrene; F10.220 Alcohol dependence with intoxication, uncomplicated; G89.4 Chronic pain syndrome; G62.1 Alcoholic polyneuropathy; Z87.891 Personal history of nicotine dependence; Z91.14 Patient's other noncompliance with medication regimen; Y93.89 Activity, other specified; Y92.89 Other specified places as the place of occurrence of the external cause; Y99.8 Other external cause status; Z79.899 Other long term (current) drug therapy; Z59.0 Homelessness
CPT/HCPCS: 36415; 70450-TC; 71045; 71275; 72072-TC; 72100-TC; 73030; 80048; 80053; 81000-TC; 84484; 85025; 85379; 85610-TC; 85730-TC; 87081; 93005; 96361; 96374; 97110-GP; 97112-GP; 97530-GP; G0378; G0482; J2060; J2270; J3411; J3475; J3490; J7030; J7060; J7620; Q9967

== ENCOUNTER 2020-05-27 15:32 | Emergency (ER) | payer OTHER, SELFPAY ==
[~2020-05-27] VITALS: Ht 177.8 cm; Wt 108.9 kg
[~2020-05-27 15:32] MED LIST changes: +BUME1TAB31 PO; -BUME1TAB4 PO
[2020-05-27 15:35] VITALS: BP_SYST 99
[2020-05-27] MEDS ORDERED: NACL 0.9% 1,000 ML IV ONE ×2 (16:00→17:00)
[2020-05-27 16:40] LABS: BASOPHILS % (AUTO) 0.3 % (0.0-2.0); EOSINOPHILS # (AUTO) 0.2 K/uL (0.0-0.4); EOSINOPHILS % (AUTO) 3.9 % (0.0-4.0); HEMATOCRIT 38.1 % (36-54); LYMPHOCYTES # (AUTO) 1.1 K/uL (1.0-5.5); LYMPHOCYTES % (AUTO) 21.7 % (20.5-51.5); MEAN CORPUSCULAR HEMOGLOBIN 37 pg (27-31); MEAN CORPUSCULAR HGB CONC 34 % (32-36); MEAN CORPUSCULAR VOLUME 108 fL (79.0-98.0); MONOCYTES # (AUTO) 0.7 K/uL (0.0-1.0); MONOCYTES % (AUTO) 13.6 % (1.7-9.3); NEUTROPHILS % (AUTO) 60.5 % (40.0-70.0); PLATELET COUNT (AUTO) 194 K/uL (130-430); RED BLOOD CELL COUNT(AUTO) 3.51 MIL/uL (4.2-6.2); RED CELL DISTRIBUTION WIDTH 15.3 % (9.0-15.0)
[2020-05-27 16:58] LABS: ANION GAP 10 (5-15); CALCIUM 8.6 mg/dL (8.4-11.0); CHLORIDE 105 mmol/L (98-107); CREATININE 1.27 mg/dL (0.55-1.30); GLUCOSE 93 mg/dL (70-99); POTASSIUM 4.7 mmol/L (3.5-5.1); SODIUM SERUM 141 mmol/L (136-145); UREA NITROGEN, BLOOD 15 mg/dL (8-21)
[2020-05-27 17:03] LABS: GFR AFRICAN AMERICAN 72 mL/min (>90)
[2020-05-27 17:06] LABS: ALANINE AMINOTRANSFERASE 31 U/L (12-78); ALBUMIN 3.1 g/dL (3.4-4.8); ASPARTATE AMINOTRANSFERASE 29 U/L (10-37); BILIRUBIN,DIRECT 0.1 mg/dL (0.0-0.3); TOTAL BILIRUBIN 0.4 mg/dL (0.0-1.0)
[2020-05-27 17:40] LABS: PROTHROMBIN TIME 10.4 SECS (9.5-12.5)
[2020-05-27 18:15] VITALS: BP_SYST 113
== END 2020-05-27 19:00 | disposition left against medical advice (07) ==
LOC: SED 15:32
DX: M54.5 Low back pain (principal); I10 Essential (primary) hypertension; I48.91 Unspecified atrial fibrillation; Z86.73 Personal history of transient ischemic attack (TIA), and cerebral infarction without residual deficits; Z79.899 Other long term (current) drug therapy; Z20.828 Contact with and (suspected) exposure to other viral communicable diseases
CPT/HCPCS: 36415; 70450; 71260; 72125; 74177; 76376; 80048; 80076; 84484; 85025; 85610; 85730; 86886; 86900; 86901; 87426; 93005; 99285; Q9967

== ENCOUNTER 2021-09-27 02:41 | Emergency (ER) | payer OTHER ==
[~2021-09-27] VITALS: Ht 182.9 cm; Wt 113.9 kg
[~2021-09-27 02:41] MED LIST changes: -AMI200 PO; -AMIN30LI33 PO; +AMIO200T66 PO; +HYDR-3927 PO; -HYDR-4100 PO; +LIQUACEL LIQUID30 ML PO
[2021-09-27 03:29] VITALS: BP_SYST 145
[2021-09-27] MEDS ORDERED: HYDROcodone/ACETAMIN 5-325 MG TAB (NORCO/ VICODIN) PO ONE ×2 (03:30→05:45)
[2021-09-27 04:15] LABS: HEMOGLOBIN 12.7 g/dL (14.0-18.0); WHITE BLOOD COUNT (AUTO) 7.2 K/uL (4.8-10.8)
[2021-09-27 04:22] LABS: BASOPHILS % (AUTO) 0.1 % (0.0-2.0); EOSINOPHILS # (AUTO) 0.2 K/uL (0.0-0.4); EOSINOPHILS % (AUTO) 3.4 % (0.0-4.0); HEMATOCRIT 38.8 % (36-54); MEAN CORPUSCULAR HEMOGLOBIN 31 pg (27-31); MEAN CORPUSCULAR HGB CONC 33 % (32-36); MEAN CORPUSCULAR VOLUME 93 fL (79.0-98.0); MONOCYTES # (AUTO) 1.2 K/uL (0.0-1.0); MONOCYTES % (AUTO) 16.3 % (1.7-9.3); NEUTROPHILS # (AUTO) 4.8 K/uL (1.8-7.7); NEUTROPHILS % (AUTO) 66.2 % (40.0-70.0); PLATELET COUNT (AUTO) 277 K/uL (130-430); RED BLOOD CELL COUNT(AUTO) 4.18 MIL/uL (4.2-6.2); RED CELL DISTRIBUTION WIDTH 15.3 % (9.0-15.0)
[2021-09-27 04:27] LABS: ANION GAP 5 (5-15); CALCIUM 9.2 mg/dL (8.4-11.0); CHLORIDE 106 mmol/L (98-107); CREATININE 1.28 mg/dL (0.55-1.30); GLUCOSE 98 mg/dL (70-99); POTASSIUM 3.6 mmol/L (3.5-5.1); SODIUM SERUM 138 mmol/L (136-145); UREA NITROGEN, BLOOD 17 mg/dL (8-21)
[2021-09-27 04:35] LABS: ALANINE AMINOTRANSFERASE 19 U/L (12-78); ALBUMIN 3.2 g/dL (3.4-4.8); ASPARTATE AMINOTRANSFERASE 19 U/L (10-37)
[2021-09-27] MEDS ORDERED: dilTIAZem HCL IVP 5 MG/ML VIAL IVP ONE (04:45)
[2021-09-27] MEDS ORDERED: POTASSIUM CHLORIDE 20 MEQ TAB.PRT.SR PO ONE (04:45)
[2021-09-27 05:16] LABS: TOTAL BILIRUBIN 0.3 mg/dL (0.0-1.0)
[2021-09-27] MEDS ORDERED: AMIODARONE HCL 200 MG TABLET PO ONE (05:45)
[2021-09-27] MEDS ORDERED: HYDR-3917 PO (05:53)
--- NOTE | 2021-09-27 07:20 | NUR ---
Report received from Julius WOODRUFF to assume care of patient
--- NOTE | 2021-09-27 07:25 | NUR ---
Pt awake, alert and oriented x 3. Resting in bed; in NAD. Walking boot noted to Francis URIARTE on monitor technician. Pt informed of treatment plan moving forward; understanding verbalized. Pt awaiting transportation via ambulance back home.
[2021-09-27 08:22] VITALS: BP_SYST 147
[2021-09-27] MEDS ORDERED: HYDROcodone/ACETAMIN 10-325 MG TAB PO ONE (08:30)
--- NOTE | 2021-09-27 09:05 | NUR ---
Patient given written and verbal discharge instructions and verbalizes understanding. ER MD discussed with patient the results and treatment provided. Patient in stable condition. ID arm band removed. IV catheter removed intact and dressing applied, no active bleeding. Rx of [employer] given. Patient educated on pain management and to follow up with PMD. Pain improving with PRN [employer] given. Opportunity for questions provided and answered. Medication side effect fact sheet provided.
== END 2021-09-27 09:05 | disposition home or self-care (01) ==
LOC: SED 02:41
DX: S82.841A Displaced bimalleolar fracture of right lower leg, initial encounter for closed fracture (principal); I48.20 Chronic atrial fibrillation, unspecified; I10 Essential (primary) hypertension; Z79.899 Other long term (current) drug therapy; W19.XXXA Unspecified fall, initial encounter; Y93.89 Activity, other specified; Y92.89 Other specified places as the place of occurrence of the external cause; Y99.8 Other external cause status
CPT/HCPCS: 36415; 71045; 73600; 73620; 80053; 83880; 84484; 85025; 93005; 96374; 99285; J3490